=== PATIENT | male | born 1960 | race Caucasian/White ===

== ENCOUNTER 2020-04-28 12:23 | Emergency (ER) | payer BC, SELFPAY ==
[2020-04-28 12:23] VITALS: BP 153/86; PULSE 103; RESP 18; TEMP 36.4; O2SAT 99; BMI 23.0
--- NOTE | 2020-04-28 12:43 | RAD_ITS ---
STUDY: X-RAY CHEST REASON FOR EXAM: Male, 59 years old. RIGHT SIDE PAIN. LEFT SIDE WEAKNESS TECHNIQUE: Single AP portable view of the chest. COMPARISON: None. FINDINGS: The lungs are clear and expanded. There is no demonstrated pleural abnormality. Normal size heart. Normal mediastinum and tali. Normal visualized pulmonary arteries. Normal visualized aortic arch and descending thoracic aorta. Normal visualized thoracic spine. Normal visualized ribs, clavicles, and shoulders. There is no demonstrated abnormality of the visualized soft tissue structures of the upper abdomen. RAD/Chest 1 View (Portable) IMPRESSION: Normal x-ray examination of the chest. Electronically Signed: Alex Tristan MD at 13:34 EST Tel , Service support ,
--- NOTE | 2020-04-28 12:44 | ED.VIS.GEN ---
History of Present Illness Chief Complaint: Weakness Informant: Patient Onset: Days Maximum Severity: Mild Narrative: The patient presents complaining of left upper extremity greater than left lower extremity weakness that began yesterday sometime in the evening. He indicates on Wednesday he was at work he slipped on a railing struck his right chest he has some pain to the posterior right chest but he did not injure his head neck or left side. His left-sided weakness persisted into today where he simply could not effectively use his left upper extremity to grab or do normal activities, he also noticed that he has progressively worsening left lower extremity weakness to where he has trouble walking. He has no headache no confusion he did not hit his head he has no neck pain, he has no symptoms to the right side of his body, no chest pain or abdominal pain, he has no past medical history is on no meds again with a near fall a few days ago he simply slipped and struck the right side of his chest against the railing he did not injure any other part of his body Past Medical History - Allergies and Home Meds Allergies/Adverse Reactions: Allergies Penicillins Allergy (Verified 04/28/20 12:26) Lisha Primary Care Physician: Care Physician,No Primary [Primary Care Provider] - Past Medical History: None Review of Systems General: Denies: Chills, Fever, Sweats Eyes: Denies: Visual changes - bilaterally, Diplopia ENT: Denies: Rhinorrhea, Sore throat Cardiovascular: Reports: Chest pain. Denies: Palpitations Respiratory: Denies: Dyspnea, Cough, Dyspnea on exertion Gastrointestinal: Denies: Abdominal pain, Nausea, Vomiting, Diarrhea, Melena, Hematochezia Genitourinary: Denies: Dysuria, Hematuria, Frequency Musculoskeletal: Denies: Back pain, Extremity Pain Skin: Denies: Rash, Wounds Neurological: Reports: Weakness. Denies: Headache, Numbness Physical Exam Vital Signs/Narrative: Vital Signs Temp Pulse Resp BP Pulse Ox 04/28/20 12:23 97.6 F L 103 H 18 153/86 H 99 General: Well nourished, Well developed, No Acute Distress Head: Normocephalic, Atraumatic Eyes: Perrl, EOMI ENT: Moist mucous membranes, No rhinorrhea Neck: Supple, Nontender Cardiovascular: Regular rate, Regular rhythm, No murmurs, - - Some discomfort to the right posterior chest he has a lidocaine patch to this area there is no crepitance lungs sound clear Respiratory: No distress, CTA bilaterally, Chest nontender Abdomen: Soft, Nontender, Nondistended, Normal bowel sounds Back: Nontender, Normal Inspection Extremities: Nontender, No edema Skin: Normal color, No rash Neurological: Alert, Oriented x3, Cranial nerves II-XII grossly intact, Normal Sensation, Weakness, - - The patient's cranial nerves are intact his speech mental function vision is normal, extract muscles normal, he has obvious weakness 3 out of 5 to left upper extremity similar left lower extremity right side normal, see the note Psychological: Normal affect, Normal Mood Diagnostic/Tx/Re-eval - Medical Decision Making His NIH is cranial nerves are normal the right side is normal, the left side he can raise the left upper extremity off the bed he has obvious weakness he has severe dense weakness to the left hand function he can raise the left leg off the bed but again obvious weakness he can hold the arm and the leg on the left up for the 5 and 10 counts he is given 2 for each of those extremities so his NIH right now is about 4 his mental function is normal oriented alert x4 airway is intact he has no head or neck pain or extremity pain All began yesterday given all the above ED evaluation rapid CTA head neck Patient's EKG shows sinus rhythm rate about 78 no acute injury pattern, The patient CTA head neck per radiology shows wedge-shaped parietal infarct subacute right, the right internal carotid artery seems to have a 50% occlusion with a floating set partially hit floating segment of clot, Spoke with the family spoke with the daughter who is a nurse who resides in [place] patient discussed all the above with them, there are agreed to be transferred to the [facility] for further management of all the above Spoke with the [facility] stroke neurologist and the transfer center neurology asked that the patient be given 325 mg of aspirin no heparin at this time agreed he can be transferred via ground. Critical care time 30 minutes Discussed again all this with the patient and the family who agree Disposition transfer to the [facility] emergency department stroke evaluation Final impression subacute right parietal stroke, right internal carotid intraluminal clot 50% stenosis ED Disposition - Plan for ED Patient: Diagnosis: Acute stroke Referrals: Care Physician,No Primary [Primary Care Provider] -
--- NOTE | 2020-04-28 12:47 | CT_ITS ---
We are attempting to reach an attending provider to discuss findings. An addendum with communication details will be sent when the communication is complete. STUDY: CTA HEAD AND NECK WITH CONTRAST REASON FOR EXAM: Male, 59 years old. Left arm/leg weakness, fell 4 days ago denies hitting head. RADIATION DOSAGE (If Supplied By Facility): CTDIvol = ( 19.79 ) mGy, DLP = ( 624.96 ) mGycm TECHNIQUE: CT angiography was performed with a multi-detector CT scanner. Data acquisition was obtained from the skull base through the vertex following intravenous administration of 100mL Isovue 370. MIP images were reconstructed from the axial data set. Post-processing of the angiographic images was performed, with multiplanar reformation and 3D reconstruction. Individualized dose optimization techniques were used for this CT. COMPARISON: No relevant priors. FINDINGS: The aorta has a normal branching pattern. Right brachiocephalic, right subclavian, right common carotid, left common carotid and left subclavian arteries are patent. Right internal carotid has a partially detached nonocclusive intraluminal thrombus arising from a lipid rich plaque at the common carotid bifurcation, producing low-grade, 50% stenosis. Remainder of the right cervical ICA is patent. Left cervical ICA is patent. Bilateral base of skull carotids, bifurcations, anterior and middle cerebral arteries and proximal branches are patent. There is a wedge-shaped right parietal distal ends territory infarct. There is subjacent vessel is too small and cannot be resolved. Bilateral posterior cerebral arteries, basilar and vertebral arteries are patent. Vertebral arteries are patent in the cervical segments and arise bilaterally from the aorta. IMPRESSION: 1. Partially attached nonocclusive thrombus in the right proximal ICA with 50% reduction in diameter of the vessel. Emergent vascular referral is advised. Electronically Signed: Eligio Christiansen, at 13:58 EST Tel , Service support , STUDY: CT BRAIN WITHOUT CONTRAST REASON FOR EXAM: Male, 59 years old. Left arm and leg weakness, fall 4 days ago RADIATION DOSAGE (If Supplied By Facility): CTDIvol = ( 44.99 ) mGy, DLP = ( 745.49 ) mGycm TECHNIQUE: Transaxial CT imaging of the brain was performed without administration of intravenous contrast material. Individualized dose optimization techniques were used for this CT. COMPARISON: No relevant priors. FINDINGS: There is a moderate extent wedge-shaped right parietal hypodensity with effacement of the sulci and gyri. There is no acute intracranial hemorrhage, extra parenchymal fluid collections, hydrocephalus or herniation. The skull is intact. CT/CTA Head AND Neck W/ Contrast IMPRESSION: 1. Right parietal late acute/early subacute infarct, estimated at 2-10 days old. Electronically Signed: Eligio Christiansen, at 13:54 EST Tel , Service support ,
[2020-04-28 13:11] LABS: Absolute Lymphocyte Count 1.13 X10^3/uL (0.83-4.51); Basophil# 0.03 X10^3/uL; Basophil% 0.2 % (0-1); Differential Indicated SCAN CRITERIA MET; Eosinophil# 0.01 X10^3/uL; Eosinophils% 0.1 % (0-5); Hematocrit 42.8 % (40-54); Hemoglobin 14.6 g/dL (13.0-16.5); Lymphocyte # 1.13 X10^3/ul (4.0); Lymphocyte % 6.9 % (19-41); Mean Corp Hgb Conc 34.1 g/dL (32-36); Mean Corpuscular Hgb 30.8 pg (27.0-32.0); Mean Corpuscular Volume 90.3 fL (80-94); Mean Platelet Vol. 13.5 fl (6.2-12.0); Monocyte% 7.3 % (0-10); NRBC Flagged by Analyzer 0 % (0-5); Neutrophil # 13.97 X10^3/uL (2.7-7.7); Neutrophil % 84.7 % (47-70); POSITIVE COUNT YES; Platelet Count 60 K/mm3 (150-450); RBC Distribution Width CV 12.9 % (11.6-14.6); Red Blood Count 4.74 M/mm3 (4.6-6.2); White Blood Count 16.5 K/mm3 (4.4-11.0)
[2020-04-28 13:21] LABS: Anion Gap 7 (5-15); BUN 18 mg/dL (7-18); BUN/Creat Ratio 17.6 RATIO (10-20); Calcium,Total 8.9 mg/dL (8.5-10.1); Chloride 107 mmol/L (98-107); Creatinine, Serum 1.02 mg/dL (0.70-1.30); EST Glomerular Filtration Rate 79 mL/min (>60); Est Glom Filt Rate - Afr Amer 95 mL/min (>60); Estimated Creatinine Clearance 82.95 ml/min; Glucose 105 mg/dL (74-106); Potassium 3.9 mmol/L (3.5-5.1); Sodium Level 139 mmol/L (136-145)
[2020-04-28 13:35] LABS: Platelet Estimate MKD DEC (ADEQ)
[2020-04-28 13:36] LABS: Platelet Morphology LARGE
--- NOTE | 2020-04-28 13:43 | EKG12_ITS ---
Test Reason : Blood Pressure : / mmHG Vent. Rate : 078 BPM Atrial Rate : 078 BPM P-R Int : 182 ms QRS Dur : 092 ms QT Int : 372 ms P-R-T Axes : 078 079 057 degrees QTc Int : 424 ms Normal sinus rhythm Normal ECG Confirmed by MITCHEL HALL, AD ([id number]), society editor DIAMANTE HOPE ([id number]) on 04/29/2020 10:34:47 AM Referred By: MAXX Confirmed By:AD GRULLON MD
[2020-04-28 14:56] VITALS: BP 146/83; PULSE 82; RESP 17; O2SAT 96
[2020-04-28] MEDS: Aspirin 325 MG Tablet PO (14:59)
[2020-04-28 15:03] VITALS: BP 155/100; PULSE 78; RESP 16; O2SAT 95
[2020-04-28 15:11] LABS: International Normalized Ratio 1.2; Prothrombin Time (Protime)PT. 14.7 SECONDS (11.7-14.9)
[2020-04-28 15:40] VITALS: BP 161/85; PULSE 77; RESP 16; O2SAT 96
== END 2020-04-28 15:42 | disposition short-term general hospital (02) ==
PROVIDERS: Emergency Provider Emergency Medicine
DX: I63.231 Cerebral infarction due to unspecified occlusion or stenosis of right carotid arteries (principal); G81.94 Hemiplegia, unspecified affecting left nondominant side
CPT/HCPCS: 70496; 70498; 71045; 80048; 85025; 85610; 93005; 96360; 96361; 99285; J7040; Q9967

== ENCOUNTER → 2020-05-29 11:31 | Outpatient (CLI) | payer BC, SELFPAY ==
[2020-05-29 15:46] LABS: AST(SGOT) 17 U/L (15-37); Alanine Aminotransfer ALT/SGPT 32 U/L (16-61); Alkaline Phosphatase 125 U/L (45-117); Bilirubin, Direct 0.09 mg/dL (0.00-0.30); Cholesterol 130 mg/dL (200); Globulin 3.7 g/dL (2.2-4.2); High Density Lipoprotein 62 mg/dL; Protein, Total 7.7 g/dL (6.4-8.2); Triglycerides 73 mg/dL; Very Low Density Lipoprotein 15 mg/dL (5-40)
== END ==
PROVIDERS: PCP Family Medicine; Visit Provider Family Medicine
DX: E78.5 Hyperlipidemia, unspecified (principal)
CPT/HCPCS: 36415; 80061; 80076

== ENCOUNTER → 2020-08-08 07:34 | Outpatient (CLI) | payer BC, SELFPAY ==
--- NOTE | 2020-08-08 07:39 | CT_ITS ---
STUDY: CTA HEAD AND NECK WITH CONTRAST REASON FOR EXAM: Male, 60 years old. CEREBRAL INFARCTION/UNSPECIFIED RADIATION DOSAGE (If Supplied By Facility): CTDIvol = ( 29.36 ) mGy, DLP = ( 1524.74 ) mGycm TECHNIQUE: CT angiography was performed with a multi-detector CT scanner. Data acquisition was obtained from the skull base through the vertex following intravenous administration of IV 100mL Isovue-370. MIP images were reconstructed from the axial data set. Post-processing of the angiographic images was performed, with multiplanar reformation and 3D reconstruction. Individualized dose optimization techniques were used for this CT. COMPARISON: Comparison is made with prior examination dated 04/28/2020. FINDINGS: Normal bilateral petrous carotid arteries. There is calcified plaque formation of the right cavernous carotid artery, without a cross-sectional luminal stenosis. There is calcified plaque formation of the left cavernous carotid artery, without a cross-sectional luminal stenosis. Normal right A1 segments of the anterior cerebral artery. Normal left A1 segments of the anterior cerebral artery. Normal intact anterior communicating artery (ACOM). Normal bilateral A2 segments of the anterior cerebral arteries. There is irregularity of the right M1 and M2 branches with minimal luminal narrowing, suggesting atherosclerotic plaque formation, without an occlusion. There are decreased arterial branches in the distribution of the sylvian fissure on the right side. Normal left M1 and M2 segments of the middle cerebral arteries, with a normal M1 bifurcation. Normal right posterior communicating artery (PCOM). Normal left posterior communicating artery (PCOM). Normal bilateral vertebral arteries. Normal basilar artery with a normal basilar bifurcation. The visualized bilateral superior cerebellar (SCA) arteries are normal. Normal bilateral P1, P2 and visualized P3 segments of the posterior cerebral arteries. There is no demonstrated aneurysm of the [place]. There is evidence of encephalomalacia in the right temporal parietal occipital lobes. AORTIC ARCH: There is atherosclerotic calcific plaque formation of the aortic arch and great vessels arising from the aortic arch, without a hemodynamically significant stenosis. There is a normal origin of the brachiocephalic, left common carotid, and left subclavian arteries. RIGHT CAROTID ARTERIES: Normal right common carotid artery (CCA). Normal right common carotid bulb. Normal origin of the right internal carotid (ICA) artery without a hemodynamically significant stenosis. Normal visualized cervical portion of the right internal carotid artery. The previously seen thrombus in the distal portion of the right common carotid artery is not seen at this time. Normal origin of the right external carotid artery (ECA). LEFT CAROTID ARTERIES: Normal left common carotid artery (CCA). Normal left common carotid bulb. Normal origin of the left internal carotid (ICA) artery without a hemodynamically significant stenosis. Normal visualized cervical portion of the left internal carotid artery. Normal origin of the left external carotid artery (ECA). VERTEBRAL ARTERIES: There is enhancement within the bilateral vertebral arteries with a small left vertebral artery, and a dominant right vertebral artery. CT/CTA Head AND Neck W/ Contrast IMPRESSION: Irregularities of the right M1 and M2 branches of the right middle cerebral artery suggestive of atherosclerotic changes with decreased arterial branches within the right sylvian fissure. Electronically Signed: Trace Bishop MD at 9:35 EDT , Service support ,
[2020-08-08 07:51] LABS: CREATININE FINGERSTICK 1.3 mg/dL (0.70-1.30); EGFR FINGERSTICK > 60.0000 mL/min (>60)
== END ==
PROVIDERS: PCP Family Medicine; Visit Provider Psychiatry & Neurology Neurology
DX: I63.9 Cerebral infarction, unspecified (principal)
CPT/HCPCS: 70496; 70498; Q9967; A4216

== ENCOUNTER 2020-10-22 16:30 | Outpatient (RCR) | payer BC, SELFPAY ==
--- NOTE | 2020-07-16 16:56 | HP.PTEVAL ---
Patient's Visit Information NILESH JOHNSON is a 60 year old M referred to Physical Therapy by Dr. Vinnie Nash DO with a diagnosis of C VA. Date of Evaluation: 07/16/20 Physical Therapist: Serjio Tran DPT, OCS, CSCS - Visit Plan Frequency: 3x /Week Duration: 4-6 Weeks Plan: 3x/week for 3-6 weeks for. 1. L LE strength to HEP. 2. L LE coordination and posterior stretching. 3. functional strengtha nd gait weaning AD as safety allows and steps, upper level gait. Balance L LE. Pt to have OT for fine motor and UE. - Subjective 04/28/20 stroke April 28. Had 4 visits of PT over at [facility]. Had home therapy originally. Spent 3 days [facility] and [facility]. Had a clot in carotid and L side is weak and poor motor control. Mostly the arm is effected. L ankle is a little stiff. Walking is more poor balance. Uses cane to get around and sometimes a walker. Did not need prior to stroke. Improvement since had stroke but slow. Lives with and great tanika. 37 years. Has two floors but lives on bottom floor with two steps out to yard which he does not do alone. One step off deck whcih he can do but goes down backwards. Has a rail. Dresses self, bathroom I, shower I with step in shower and sits ion chair climbing in himself. Needs some help pulling pants up with L UE. Is R handed. Sleep is good and not in any pain. 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 Can get down on hands and knees and get back up, does dishes and runs vaccuum. Feeds dog at night but all things are slow. Took trash out yesterday. 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 No falls. Enjoys hunting golfing when healthy. Enjoys dirt track races watching. - Objective L diminished motor controla dn slowness in gait pattern, using cane in R and less movement to L LE joints, but mod I with cane adn without cane albeit slow adn less steady without cane. Trasnfers without UE I. Steps preferring to use R up and L down and needing two rails. HS adn gastroc max tight on L and mod on R. AROM L hip 5 ext and 10 abd actively but has better passive ROM. weak and poor motor control throughout L LE. strength in hips 4- and knee flexion ext 3+ L and ankle ev and DF 3 on L and 3+ PF adn inv. R LE is 4/5 throughout. reflexes 2/3 R patella and achilles and 3/3 R. Sensation is diminished to gross lgiht touch in L LE vs R moderately. Coordination to reciprocal toe tapping and heel tap is poor on L. UE AROM WFL but weaker throughout on L. - Balance Scores Functional Gait Assessment Score: 20 % Disability: 33.3400 - Goals Goal 1:: patient walk without gait deficits comunity based distance Goal Time Frame: 4-6 Weeks Goal 2:: Steps reciprocally without need for rail Goal Time Frame: 4-6 Weeks Goal 3:: I appropriate HEP for cotninued improvement of L LE motor controla dn strength Goal Time Frame: 4-6 Weeks Goal 4:: LEFS 55/80 Goal Time Frame: 4-6 Weeks Goal 5:: Pt report 90% improvement in overall condition Goal Time Frame: 4-6 Weeks - Rehabilitation Potential Physical Therapy Diagnosis: CVA with L weakness effecting mobility. Rehabilitation Potential: Fair - Anticipated Interventions Patient/Client Instruction: Educate patient on: Condition, Plan of Care For the Purpose of:: To improve muscle performance and motor function, To increase tolerance to activity/condition/position, To improve ability of physical actions for home/community/work/leisure, To improve gait and locomotor functions Therapeutic Exercise to Include: Strength training, Postural training, Flexibilty training, Gait and locomotor training For the Purpose of:: To decrease pain, To improve muscle performance and motor function, To improve ability to perform ADL's, To increase tolerance to activity/condition/position, To decrease level of supervision to perform tasks, To improve gait and locomotor functions Thank you for the opportunity to evaluate your patient. For Medicare and Medicare HMO plans, please review the plan of care and approve it. It will need to be FAXED BACK to us at [phone] for Medicare purposes. For Medicare only, by signing this I certify the plan of care. Please let me know if there are questions or concerns regarding this plan of care. Physician Signature: Date:
--- NOTE | 2020-07-18 11:38 | HP.OTEVAL_ITS ---
Patient's Visit Information NILESH JOHNSON is a 60 year old M, referred to Occupational Therapy by Dr. Vinnie Nash DO, with a diagnosis of CVA left side weakness. Date of Evaluation: 07/18/20 Occupational Therapist: Fiona Santos, SAM/Joo, CHT - Subjective This 60 year old male was seen for OT eval with dx of CVA. pts states April 28, 2020 was his stroke. pt had 4 visits of PT over at [facility]. Had home therapy originally. Spent 3 days [facility] and then 6 days at [facility]. Had a clot in carotid and L side is weak and poor motor control. Mostly the arm is effected. Using cane to get around and sometimes a walker. Did not need prior to stroke. Improvement since had stroke but slow. Lives with and great tanika. 37 years. Has two floors but lives on bottom floor with two steps out to yard which he does not do alone. One step off deck whh he can do by going down backwards. Has a rail. Dresses self, bathroom I, shower at YANET with use of shower chiar step in shower. tsf into shower herself. Needs some help pulling pants up with L UE. Is R handed. Sleep is good and not in any pain. 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 Can get down on hands and knees and get back up, does dishes and runs vaccuum. Feeds dog at night but all things are slow. Took trash out yesterday. 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 No falls. Enjoys hunting golfing when healthy. Enjoys dirt track races watching. - ADLs Dressing: Pants, Socks, Shoes Fasteners: Tie shoes, Buttons, Zippers, Snaps Eating: Use silverware, Cut food Comments: sits on shower chiar holds shower head Toileting: Manage clothing Kitchen: Peel fruits & vegetables, Open bottle caps, Ziplock bags, Pour from pitcher, Take dish out of oven, Load/unload seat cover cutter Yard: Mow lawn, [place], [place], Use shovel - ROM ROM Comments: pt demo ROM WNL slow with completion of ROM but has it! - Strength Shoulder: right 5/5 left 4-/5 Elbow: right 5/5 left 4-/5 Forearm: right 5/5 left 4-/5 Wrist: right 5/5 left 4-/5 Sustainability Engineer: right 85# left 30# Lateral Pinch: right 20# left 12# Tripod Pinch: right 16# left 6# - Sensation Sensation Comments: denies changes - Visual/Perceptual Skills Visual Field Cut: Yes - bottom left right eye bottom left left eye Left Neglect: Yes - Cognitive Skills Follows Directions: Yes - needs correction and repeat Oriented to (Check all that apply): Place - [place] Peg Right: 26.14 sec Left: 2:00 min given unable to perform Comments: shoulder compensation - In-Hand Manipulation Finger to Palm Translation: Normal - Right, Unable - Left Palm to Finger Translation: Normal - Right, Unable - Left Shift: Normal - Right, Unable - Left Rotation: Normal - Right, Unable - Left - Goals Goal:: pt will demo left UE MMT 4+/5 grossly throughout to increase pts ind with ADLs and IADls by d/c. pt will demo a increase in left regulatory affairs assistant strength to 70# or greater to increase pts ind. with ADLs and IADls by d/c. pt will demo a increase in left lateral and tripod pinch to by 6# to increase pts ind. with ADLs and IADls by d/c Goal:: pt will demo with increase in left UE fluid movement patterns of shoulder/elbow/wrist and digits - demo a decrease in compensitory jitendra. by d/c Goal:: pt will demo the ability to manipulate fasteners ind by d/c. pt will demo ability to berry picker machine operator small, med, large objects to perform ADls and IADLs by d/d Goal:: pt and will report YANET with bathing/dressing/ cutting food by d/c Goal:: pt will demo the ability to position self in N with no turning to right demo a decrease in left neglect by d/c to increase field of view to increase safty and environmental awarness. - Rehabilitation General Assessment: pt demo with left UE weakness, abnormal muscle movement , compensitory jitendra. to reach - poor grasp and pinch grasp, visual deficits, balance . this is limiting pts ind. with ADls and IADls. pt would benefit from skilled OT services 3x week for 8 weeks to increase pts movment patterns, strength and return pt to PLOF. pt and pts agree to POC. Rehabilitation Potential: Good - Anticipated Interventions A/AAROM/PROM, Strengthening, Fine Motor Coord/Robby, Neuro Reeducation, Education re assistive Equipment - Visit Plan Frequency: 2-3x /Week Duration: 3 Months TEXT: Thank you for the opportunity to evaluate your patient. For Medicare and Medicare HMO plans, please review the plan of care and approve it. It will need to be FAXED BACK to us at [phone] for Medicare purposes. Please let me know if there are questions or concerns regarding this plan of care. Physician Signature: Date:
--- NOTE | 2020-08-23 13:03 | HP.PTREVAL_ITS ---
Dr. Vinnie Nash, DO, It has been my pleasure to treat NILESH JOHNSON over the last 15 visits for CVA. Please see the progress note below for an update on the physical therapy plan of care! Subjective: I can get around easier. feeling stronger adn faster. No falls Using cane at t imes away form homes. No AD needed at home except just after shower. Only been up steps a few times with railing required. Sleep is good. Activities a jessica are not bad, not confident in his arm is holding him back. Did some push mowng well. Haven't tried golfing yet. 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 Balance is till not overly confident. To family doctor in November. has heart monitor on him now adn will have virtual visit with neuro on October 01. Objective/Function: Walsk with L UE overflow neuro into elevated scap adn shoulder flexion 30 degrees especially when challenged. Safe adn I on firm surface today. Trasnfers out of chair without UE. steps require railing and mod I reciprocally up and down with some weakness L. SLS r 8+ sec adn L 1 seconds and dangerous. Strength DF L 4- adn R 4. hip abd and ext 3+ L and 4- R. knee flexion and extension 4 B. Overall good improvements and still apprpriate to cotniue fo rbalance and progression to I gym program. Plan Plan: 2-3x/week for 4 weeks for. 1. insturct adn progress to I with gym program. 2. Wrok on SLS staitc and dynamic balance L. Goals still approrpriate with fair prognosis Goals Goal 1:: patient walk without gait deficits comunity based distance Goal Time Frame: 4-6 Weeks Goal Progress: limp, but I. Goal 2:: Steps reciprocally without need for rail Goal Time Frame: 4-6 Weeks Goal Progress: needs rail Goal 3:: I appropriate HEP for cotninued improvement of L LE motor controla dn strength Goal Time Frame: 4-6 Weeks Goal Progress: Goal Met Goal 4:: LEFS 55/80 Goal Time Frame: 4-6 Weeks Goal Progress: Progressing Goal 5:: Pt report 90% improvement in overall condition Goal Time Frame: 4-6 Weeks Goal Progress: Progressing Goal 6:: SLS L 5+ seconds to show improved motor control L Goal Time Frame: 4-6 Weeks Goal Progress: NEW GOAL Anticipated Interventions Patient/Client Instruction: Educate patient on: Condition, Plan of Care For the Purpose of:: To improve muscle performance and motor function, To increase tolerance to activity/condition/position, To improve ability of physical actions for home/community/work/leisure, To improve gait and locomotor functions Therapeutic Exercise to Include: Strength training, Postural training, Flexibilty training, Gait and locomotor training For the Purpose of:: To decrease pain, To improve muscle performance and motor function, To improve ability to perform ADL's, To increase tolerance to activity /condition/position, To decrease level of supervision to perform tasks, To improve gait and locomotor functions Please do not hesitate to contact me at [phone] by phone or if you have questions or concerns regarding this new plan of care! Sincerely, Serjio Tran, DPT, OCS, CSCS
--- NOTE | 2020-08-27 10:16 | OTREVAL_ITS ---
Dr. Vinnie Nash, DO, It has been my pleasure to treat NILESH JOHNSON over the last 15 visits for CVA left side weakness. Please see the progress note below for an update on the occupational therapy plan of care! Subjective: pt states due to limited control of his left arm he has difficulty with daily tasks- states he is doing better with a fork. pt still has limitations with control of left UE with reaching for items/ pt wanting to know when he can drive- therapist advised to sign up for driving evaluation at [facility] or [facility]. pts voiced frustration with not driving does not understand why i can get DUI and drive in 30 days why cant i drive now pt not receptive to therapist explanation of the difference between CVA and into xication- therapist expressed to to schedule apt with driving program. Objective/Function: left muck hauler strength 52# initial was 30#. left lateral pinch 18# increase from 12#. left tripod pinch 16# increase from 6#. left shoulder flex 4/5. pt demo the ability to poultry picking machine tender 10 coins with left hand at slower pace and did drop 1 with poultry picking machine tender (pt did not notice) followed with palm to finger translation dropping 1 coin without notice. pt still has limitations with gross motor control of left UE and grasp- this maybe due to left lower visual peripheral loss. As pt has gained strength will focus on gross motor control with reaching for items and work with visual scan of objects- pt will cont with UE HEP Plan Frequency: 2-3x /Week Duration: 4 Weeks Plan: cont with left UE gross motor cotrol Goals - Goals Patient Goals: Regain Mobility, Regain Strength, Return to Work, Improve Fine Motor Skills, Use Hand/Wrist/Arm Normally Again, Be More Independent in ADLS Goal:: pt will demo left UE MMT 4+/5 grossly throughout to increase pts ind with ADLs and IADls by d/c. pt will demo a increase in left muck hauler strength to 70# or greater to increase pts ind. with ADLs and IADls by d/c. pt will demo a increase in left lateral and tripod pinch to by 6# to increase pts ind. with ADLs and IADls by d/c Goal:: pt will demo with increase in left UE fluid movement patterns of shoulder/elbow/wrist and digits - demo a decrease in compensitory jitendra. by d/c Goal:: pt will demo the ability to manipulate fasteners ind by d/c. pt will demo ability to poultry picking machine tender small, med, large objects to perform ADls and IADLs by d/d Goal:: pt and will report YANET with bathing/dressing/ cutting food by d/c Goal:: pt will demo the ability to position self in N with no turning to right demo a decrease in left neglect by d/c to increase field of view to increase safty and environmental awarness. Anticipated Interventions Anticipated Interventions: A/AAROM/PROM, Strengthening, Fine Motor Coord/Robby, Neuro Reeducation, Education re assistive Equipment Please do not hesitate to contact me at [phone] by phone or if you have questions or concerns regarding this new plan of care! Sincerely, Fiona Santos, OTR/L, CHT
--- NOTE | 2020-09-20 12:39 | HP.PTREVAL_ITS ---
Dr. Vinnie Nash, DO, It has been my pleasure to treat NILESH JOHNSON over the last 23 visits for CVA. Please see the progress note below for an update on the physical therapy plan of care! Subjective: Getting better. I can do more things. Can walk further adn safer. No falls lately, not needing cane. Doing outdoor work with push and riding mwer adn carrying buckets of wter, weed whacker is still challenging. Shovelling is OK. L arm body recall instructor is challenging on weed whacker. 75% better, 25% is fatigued some days. Needs to be stronger still. Steps, push ups, Lifts small weights. Feels like he can do workout in gym on his own. Objective/Function: FGA same as last session at 25, SLS 5 seconds L and 10 R. Steps reciprocally but needs rail L. Awkward motor control on L LE, tends to hold L UE out to side when walking until cued. Overall doing well with improvements, feels like he can ex himself but wants PT to ensure progress which is appropriate with fair prognosis. Plan Plan: 1x/week therapy, pt to bring ex sheet given to him christie bai with gym exericses to teach progressions and ensure technique , gradually add functional ex to program as safety allows. Will work out 2xweek himself in gyma s member and fitness membership form given today. Goals Goal 1:: patient walk without gait deficits comunity based distance Goal Time Frame: 4-6 Weeks Goal Progress: limp, but I. Goal 2:: Steps reciprocally without need for rail Goal Time Frame: 4-6 Weeks Goal Progress: needs rail Goal 3:: I appropriate HEP for cotninued improvement of L LE motor controla dn strength Goal Time Frame: 4-6 Weeks Goal Progress: Goal Met Goal 4:: LEFS 55/80 Goal Time Frame: 4-6 Weeks Goal Progress: stagnant. Goal 5:: Pt report 90% improvement in overall condition Goal Time Frame: 4-6 Weeks Goal Progress: 75% Goal 6:: SLS L 5+ seconds to show improved motor control L Goal Time Frame: 4-6 Weeks Goal Progress: Goal Met Anticipated Interventions Patient/Client Instruction: Educate patient on: Condition, Plan of Care For the Purpose of:: To improve muscle performance and motor function, To increase tolerance to activity/condition/position, To improve ability of physical actions for home/community/work/leisure, To improve gait and locomotor functions Therapeutic Exercise to Include: Strength training, Postural training, Flexibil ty training, Gait and locomotor training For the Purpose of:: To decrease pain, To improve muscle performance and motor function, To improve ability to perform ADL's, To increase tolerance to activity/condition/position, To decrease level of supervision to perform tasks, To improve gait and locomotor functions Please do not hesitate to contact me at [phone] by phone or if you have questions or concerns regarding this new plan of care! Sincerely, Serjio Tran, DPT, OCS, CSCS
--- NOTE | 2020-09-27 11:52 | HP.OTDCSUM_ITS ---
It has been my pleasure to treat NILESH JOHNSON under orders from Dr. Vinnie Nash, DO, for the diagnosis of CVA left side weakness for a total of 22 visit(s). Please see the following information for a summary of their discharge status. % Improvement: 75 Objective/Function: pt demo full ROM and a increase in Left Energy Analyst 60#. pt has made good gains with his strength and FMS. he continues to struggle with vision issues from his stroke. pt has met goals and will transition to health and wellness and is d/c from OT. Patient Goals: Regain Mobility, Regain Strength, Return to Work, Improve Fine Motor Skills, Use Hand/Wrist/Arm Normally Again, Be More Independent in ADLS Goal:: pt will demo left UE MMT 4+/5 grossly throughout to increase pts ind with ADLs and IADls by d/c met. pt will demo a increase in left land title examiner strength to 70# or greater to increase pts ind. with ADLs and IADls by d/c progressing. pt will demo a increase in left lateral and tripod pinch to by 6# to increase pts ind. with ADLs and IADls by d/c met Goal:: pt will demo with increase in left UE fluid movement patterns of shoulder/elbow/wrist and digits - demo a decrease in compensitory jitendra. by d/c Goal:: pt will demo the ability to manipulate fasteners ind by d/c goal met. 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 Plan: last appt, transition to Health and Wellness Discharge Comments: pt has made good gains and at this time transitioned to health and wellness program to cont. with UB strengthening. If there are questions or concerns regarding this patient's occupational therapy, please fell free to call me at [phone]. Thank you for the referral of this patient. Sincerely, Fiona Santos, OTR/L, CHT
--- NOTE | 2020-10-22 17:43 | HP.PTDCSUM ---
It has been my pleasure to treat NILESH JOHNSON referred by Dr. Vinnie Nash DO, with the diagnosis of CVA for a total of 28 visit(s). Discharge Date: 10/22/20 Please see the following information for a summary of their discharge status. Subjective: Doing OK with workout.No pain. No ocncerns about continuing on own. activities at home are pretty normal. Needs continue work in arm to even think about back to work/driving. % Improvement: 80 Objective/Function: AROM ankles WFL today with some L weakness DF adn tonal abnormalities causing gait deviation on L but I with gait with good speed. Steps are reciprocal without rail ascending and slight rail needed descanding. UE tone of bicpes and shoulder flexion noticeabe with concentration but corrects with VC. Transitions I without UE. Overall doing very well with mobility and can continue on his own at gym. Goal 1:: patient walk without gait deficits comunity based distance Goal Progress: I slow with neuro deficit Goal 2:: Steps reciprocally without need for rail Goal Progress: needs rail tod descend Goal 3:: I appropriate HEP for cotninued improvement of L LE motor controla dn strength Goal Progress: Goal Met, and in gym Goal 4:: LEFS 55/80 Goal Progress: Not Progressing Goal 5:: Pt report 90% improvement in overall condition Goal Progress: 80% Goal 6:: SLS L 5+ seconds to show improved motor control L Goal Progress: Goal Met Plan: d/c Discharge Comments: Pt to cotninue via gy program and f/u with doctor in 4 weeks. call in meantime if problems. If there are questions or concerns regarding this patient's physical therapy, please feel free to call me at [phone]. Thank you for the referral of this patient. Sincerely, Serjio Tran, DPT, OCS, CSCS
== END 2020-10-22 19:00 | disposition home or self-care (01) ==
LOC: PT 16:30
PROVIDERS: PCP Family Medicine; Referring Provider Family Medicine; Visit Provider Family Medicine
DX: I69.354 Hemiplegia and hemiparesis following cerebral infarction affecting left non-dominant side (principal)
CPT/HCPCS: 97110; 97112; 97116; 97162; 97164; 97166; 97530

== ENCOUNTER → 2020-11-22 07:43 | Outpatient (CLI) | payer BC, SELFPAY ==
[2020-11-22 10:21] LABS: Absolute Lymphocyte Count 1.73 X10^3/uL (0.83-4.51); Absolute Neutrophil Count 4.7 X10^3/uL (2.0-7.7); Basophil# 0.06 X10^3/uL; Basophil% 0.8 % (0-1); Eosinophil# 0.18 X10^3/uL; Eosinophils% 2.5 % (0-5); Hematocrit 47.4 % (40-54); Hemoglobin 15.5 g/dL (13.0-16.5); Lymphocyte # 1.73 X10^3/ul (0.83-4.51); Lymphocyte % 24.1 % (19-41); Mean Corp Hgb Conc 32.7 g/dL (32-36); Mean Corpuscular Volume 91.7 fL (80-94); Mean Platelet Vol. 13.2 fl (6.2-12.0); Monocyte# 0.47 X10^3/uL; Monocyte% 6.5 % (0-10); NRBC Flagged by Analyzer 0 % (0-5); Neutrophil # 4.73 X10^3/uL (2.7-7.7); Platelet Count 172 K/mm3 (150-450); RBC Distribution Width CV 13.7 % (11.6-14.6); RBC Distribution Width SD 46.9 fl (35.1-43.9); Red Blood Count 5.17 M/mm3 (4.6-6.2); White Blood Count 7.2 K/mm3 (4.4-11.0)
[2020-11-22 10:35] LABS: ALB/GLOB Ratio 1.5 RATIO (0.9-2.4); AST(SGOT) 15 U/L (15-37); Alanine Aminotransfer ALT/SGPT 27 U/L (16-61); Albumin, Serum 4.1 g/dL (3.2-5.0); Alkaline Phosphatase 80 U/L (45-117); Anion Gap 5 (5-15); BUN 14 mg/dL (7-18); BUN/Creat Ratio 16.7 RATIO (10-20); Chloride 106 mmol/L (98-107); Cholesterol 131 mg/dL (200); Creatinine, Serum 0.84 mg/dL (0.70-1.30); EST Glomerular Filtration Rate 98 mL/min (>60); Est Glom Filt Rate - Afr Amer 119 mL/min (>60); Globulin 2.8 g/dL (2.2-4.2); Glucose 91 mg/dL (74-106); High Density Lipoprotein 76 mg/dL; Potassium 3.8 mmol/L (3.5-5.1); Protein, Total 6.9 g/dL (6.4-8.2); Sodium Level 140 mmol/L (136-145); Triglycerides 49 mg/dL; Very Low Density Lipoprotein 10 mg/dL (5-40)
== END ==
PROVIDERS: PCP Family Medicine; Referring Provider Family Medicine; Visit Provider Family Medicine
DX: Z00.00 Encounter for general adult medical examination without abnormal findings (principal)
CPT/HCPCS: 36415; 80053; 80061; 85025

== ENCOUNTER 2021-01-20 08:04 | Day surgery (SDC) | payer BC, SELFPAY ==
--- NOTE | 2021-01-20 08:23 | H&P.OPEN ---
HPI - General HPI Narrative NILESH JOHNSON, is a 60 M who presents for screening colonoscopy. Patient's never had a previous colonoscopy. Patient denies a family history of colon cancer. Patient denies a chronic abdominal pain/nausea/vomiting/reflux. Patient's bowel moods daily denies any blood. Patient does have past medical history of CVA so he continued his baby aspirin. [facility] Medical History (Updated 01/16/21 @ 12:20 by Darshana Eric) Alcohol use Ambulates with cane Chronic cough CVA (cerebral vascular accident) Depression High cholesterol Shortness of breath on exertion Smoker Stroke/cerebrovascular accident Wears dentures Wears glasses Home Medications aspirin 81 mg tablet,delayed release 81 mg PO DAILY 12/13/20 [History Last Taken Unknown] atorvastatin 40 mg tablet 40 mg PO DAILY 12/13/20 [History Last Taken Unknown] Allergy/AdvReac Type Severity Reaction Status Date / Time Penicillins Allergy Hives Verified 01/16/21 12:11 Family History (Updated 12/13/20 @ 14:08 by Sultana Barakat) Sister Hypercholesterolemia Father CVA (cerebral vascular accident) Hypercholesterolemia Surgical History (Updated 12/13/20 @ 14:07 by Sultana Barakat) No history of previous surgery Social History (Updated 12/13/20 @ 14:08 by Sultana Barakat) Smoking Status: Current every day smoker tobacco type: cigarettes alcohol intake: never substance use type: does not use Past Medical/Surgical History Planned Operation Planned Operative Procedure/s: COLON Previous Hospitalizations/Surgeries HX Hospitalizations: Yes ([facility] 04/28/20 [facility]) Any Problems With Anesthesia: No You/Your Family Experience Fever (Hyperthermia) With Anes: No Cholinesterase deficiency: No Cardiovascular Hx Hypertension: No Respiratory Hx Asthma: Yes Hx Sleep Apnea: No Hx Respiratory Tract Infection/Cold (presently): No Do You Snore Loudly (louder than talking or can be heard): No Do You Often Feel Tired/ Fatigued/ Sleepy Dring Daytime?: No Has Anyone Observed You Stop Breathing During Sleep?: No Result (for STOP score): Negative Smoking Status: Current every day smoker Gastrointestinal Difficulty Chewing/Swallowing: No Neurological Does patient have nerve stimulator: No Allergies Penicillins Allergy (Verified 01/16/21 12:11) Hives Discharge Is Pt Admitted From a [facility], or a [facility]: No After D/C, Where Do you Plan to Go: Return Home Physical Exam Const alert, oriented x3 and no apparent distress HEENT normocephalic and head/scalp atraumatic Resp normal respiratory effort Cardio regular rate GI soft to palpation and non-tender; Negative for non-distended Palpation: Negative for guarding Extremity no clubbing, cyanosis or edema Neuro CN's II-XII intact bilaterally Psych mental status grossly normal Assessment & Plan Assessment/Plan (1) Screening for colon cancer: Procedure Criteria Type of Procedure Procedure Type: Elective Elective Risks - COVID COVID Risk Discussion: The surgeon/proceduralist and patient have discussed in detail the risk of exposure to and/or potential harm posed by the COVID-19 virus with having a surgery/procedure at this time versus the risk of delaying the surgery/procedure. It is not possible to know either the risk of delaying the surgery or procedure or chance of getting an infection with perfect accuracy, but a joint decision was made between the patient and the surgeon/proceduralist to proceed at this time with the scheduled surgery/procedure as indicated on the consent form. Surgery Risks - Colonoscopy Risks Include but are not Limited To: Risks include but are not limited to: Bleeding, perforation requiring further surgery, inability to complete colonoscopy requiring barium enema.
[2021-01-20 08:39] VITALS: BP 127/84; PULSE 87; RESP 16; TEMP 36.8; O2SAT 98; BMI 19.3
[2021-01-20] MEDS: Lactated Ringers 1,000 ML 100 ML IV (08:53)
--- NOTE | 2021-01-20 09:30 | COLBX_PTH ---
PATIENT: NILESH JOHNSON LOC: EN U#:[id number] AGE/SX: 60/M ROOM: RE01/20/[address]: Dr. Leigha Mcdermott MD : 1960 BED: DIS: 01/20/2021 SPEC #: [id number] RECD: 01/20/21 09:50 STATUS: [place]CCO [place] #: [id number] DMITRIY: 01/20/21 09:[address]: Leigha Mcdermott DEPT: SURGICAL PATHOLOGY RECD BY: Lori Jose ENTERED: 01/20/21 11:47 SP TYPE: COLON BX OTHR DR: Dr. Vinnie Nash, DO Tissues: Rectum, NOS Procedures: Surgery Specimen Level IV HEADER OPERATION: Colonoscopy (MAC) PRE-OP DIAGNOSIS: Screening for colon cancer TISSUE SUBMITTED: Rectal polyps x2 MICROSCOPIC DIAGNOSIS Rectal polyps x2, biopsy: Fragments of hyperplastic polyp. WEI:adalberto 01/21/2021 MICROSCOPIC DESCRIPTION Slides are reviewed. GROSS DESCRIPTION Received in fixative is one container labeled with the patient's name and designated rectal polyps. The specimen consists of multiple irregular fragments of light donahue soft tissue that in aggregate measure 1 x 0.3 x 0.1 cm. The specimen is totally submitted in one cassette. / AM:adalberto 01/20/21 TC:1 CPT: 64505
[2021-01-20 09:43] VITALS: BP 127/84; BP 92/70; PULSE 61; RESP 16; TEMP 36.2; O2SAT 96
--- NOTE | 2021-01-20 09:44 | OP.COLON_ITS ---
Patient Name: Norberto Sosa Procedure Date: 01/20/2021 9:09 AM Date of : 1960 Age: 60 Procedure: Colonoscopy Indications: Screening for colorectal malignant neoplasm Providers: Leigha Mcdermott MD Medicines: Monitored Anesthesia Care Patient Profile: This is a 60 year old male. Last Colonoscopy: none. The patient's first colonoscopy is today. Complications: No immediate complications. Procedure: Pre-Anesthesia Assessment: - Prior to the procedure, a History and Physical was performed, and patient medications and allergies were reviewed. The patient's tolerance of previous anesthesia was also reviewed. The risks and benefits of the procedure and the sedation options and risks were discussed with the patient. All questions were answered, and informed consent was obtained. Prior Anticoagulants: The patient has taken aspirin, last dose was 1 day prior to procedure. ASA Grade Assessment: Per anesthesia. After reviewing the risks and benefits, the patient was deemed in satisfactory condition to undergo the procedure. After I obtained informed consent, the scope was passed under direct vision. Throughout the procedure, the patient's blood pressure, pulse, and oxygen saturations were monitored continuously. The colonoscope was introduced through the anus and advanced to the cecum, identified by the appendiceal orifice, ileocecal valve and palpation. The colonoscopy was performed without difficulty. The patient tolerated the procedure well. The quality of the bowel preparation was good. Scope In: 9:15:50 AM Scope Withdrawal Time 0 hours 13 minutes 52 seconds Scope Out: 9:39:42 AM Total Procedure Duration Time 0 hours 23 minutes 52 seconds Findings: The perianal and digital rectal examinations were normal. A less than 5 mm polyp was found in the rectum. The polyp was sessile. The polyp was removed with a cold biopsy forceps. Resection and retrieval were complete. A less than 5 mm polyp was found in the rectum. The polyp was semi-pedunculated. The polyp was removed with a hot snare. Resection and retrieval were complete. The exam was otherwise without abnormality on direct and retroflexion views. Impression: - One less than 5 mm polyp in the rectum, removed with a cold biopsy forceps. Resected and retrieved. - One less than 5 mm polyp in the rectum, removed with a hot snare. Resected and retrieved. - The examination was otherwise normal on direct and retroflexion views. Recommendation: - Discharge patient to home. - Resume previous diet. - Continue present medications. - Await pathology results. - Repeat colonoscopy in 5 years for surveillance based on pathology results. Procedure Code(s): --- Professional --- 50452, Colonoscopy, flexible; with removal of tumor(s), polyp(s), or other lesion(s) by snare technique 75780, 59, Colonoscopy, flexible; with biopsy, single or multiple Diagnosis Code(s): --- Professional --- Z12.11, Encounter for screening for malignant neoplasm of colon K62.1, Rectal polyp CPT copyright 2017 [employer]. All rights reserved. The codes documented in this report are preliminary and upon plant safety leader review may be revised to meet current compliance requirements. MD Leigha Puentes MD 01/20/2021 9:44:15 AM This report has been signed electronically. Number of Addenda: 0 Note Initiated On: 01/20/2021 9:09 AM
[2021-01-20 09:45] VITALS: BP 127/84; BP 91/67; PULSE 56; RESP 16; O2SAT 97
--- NOTE | 2021-01-20 09:45 | OP.CCLET_ITS ---
01/20/2021 Vinnie Nash [address] [place] [address] Re : Colonoscopy procedure for Norberto Sosa Dear Dr. Nash This procedure was performed on Wednesday, January 20, 2021. My impressions and recommendations are as follows: Impressions : - One less than 5 mm polyp in the rectum, removed with a cold biopsy forceps. Resected and retrieved. - One less than 5 mm polyp in the rectum, removed with a hot snare. Resected and retrieved. - The examination was otherwise normal on direct and retroflexion views. Recommendations : - Discharge patient to home. - Resume previous diet. - Continue present medications. - Await pathology results. - Repeat colonoscopy in 5 years for surveillance based on pathology results. My findings are described in the full procedure note, which is enclosed. If I can be of further assistance, please feel free to contact me at Doctor phone number(s): , Work: . Sincerely, MD Leigha Puentes MD 01/20/2021 9:44:15 AM This report has been signed electronically.
[2021-01-20 09:50] VITALS: BP 102/68; BP 127/84; PULSE 57; RESP 16; O2SAT 97
[2021-01-20 09:58] VITALS: BP 109/70; BP 127/84; PULSE 55; RESP 16; TEMP 36.1; O2SAT 99
[2021-01-20 10:17] VITALS: BP 127/84
== END 2021-01-20 10:20 ==
LOC: EN 08:05 → AC 08:05
PROVIDERS: PCP Family Medicine; Referring Provider Surgery; Visit Provider Surgery
PROC: 0DJD8ZZ Inspection of Lower Intestinal Tract, Via Natural or Artificial Opening Endoscopic (ICD-10-PCS; CPT 45378; principal; 2021-01-20 09:25)
DX: Z12.11 Encounter for screening for malignant neoplasm of colon (principal); Z86.73 Personal history of transient ischemic attack (TIA), and cerebral infarction without residual deficits; E78.00 Pure hypercholesterolemia, unspecified; F17.210 Nicotine dependence, cigarettes, uncomplicated; Z79.82 Long term (current) use of aspirin; J45.909 Unspecified asthma, uncomplicated; K62.1 Rectal polyp
CPT/HCPCS: 45380; 45385; 88305; J7120; J2405

== ENCOUNTER → 2021-12-02 | Outpatient (CLI) | payer BC, SELFPAY ==
[2021-12-02 09:59] LABS: Absolute Lymphocyte Count 2.35 X10^3/uL (0.83-4.51); Absolute Neutrophil Count 4.6 X10^3/uL (2.0-7.7); Basophil# 0.08 X10^3/uL; Eosinophil# 0.19 X10^3/uL; Eosinophils% 2.5 % (0-5); Hemoglobin 16.8 g/dL (13.0-16.5); Lymphocyte # 2.35 X10^3/ul (0.83-4.51); Lymphocyte % 30.5 % (19-41); Mean Corp Hgb Conc 33.6 g/dL (32-36); Mean Corpuscular Hgb 31.1 pg (27.0-32.0); Mean Corpuscular Volume 92.4 fL (80-94); Mean Platelet Vol. 12.8 fl (6.2-12.0); Monocyte# 0.51 X10^3/uL; Monocyte% 6.6 % (0-10); NRBC Flagged by Analyzer 0 % (0-5); Neutrophil # 4.56 X10^3/uL (2.7-7.7); Neutrophil % 59.1 % (47-70); Platelet Count 216 K/mm3 (150-450); RBC Distribution Width CV 13.4 % (11.6-14.6); RBC Distribution Width SD 46.1 fl (35.1-43.9); Red Blood Count 5.41 M/mm3 (4.6-6.2); White Blood Count 7.7 K/mm3 (4.4-11.0)
[2021-12-02 11:00] LABS: ALB/GLOB Ratio 1.3 RATIO (0.9-2.4); AST(SGOT) 18 U/L (15-37); Alanine Aminotransfer ALT/SGPT 29 U/L (16-61); Alkaline Phosphatase 67 U/L (45-117); Anion Gap 5 (5-15); BUN 22 mg/dL (7-18); BUN/Creat Ratio 24.6 RATIO (10-20); Calcium,Total 8.6 mg/dL (8.5-10.1); Chloride 107 mmol/L (98-107); Cholesterol 136 mg/dL (200); EST Glomerular Filtration Rate 91 mL/min (>60); Est Glom Filt Rate - Afr Amer 110 mL/min (>60); Globulin 3.1 g/dL (2.2-4.2); Glucose 96 mg/dL (74-106); High Density Lipoprotein 71 mg/dL; PSA,Total - Annual Screen 0.94 ng/mL (0.00-4.00); Potassium 4.1 mmol/L (3.5-5.1); Protein, Total 7.1 g/dL (6.4-8.2); Sodium Level 140 mmol/L (136-145); Triglycerides 73 mg/dL; Very Low Density Lipoprotein 15 mg/dL (5-40)
== END | disposition home or self-care (01) ==
LOC: MTLAB 07:02
PROVIDERS: PCP Family Medicine; Referring Provider Family Medicine; Visit Provider Family Medicine
DX: Z00.00 Encounter for general adult medical examination without abnormal findings (principal); Z12.5 Encounter for screening for malignant neoplasm of prostate
CPT/HCPCS: 36415; 80053; 80061; 84153; 85025; G0103

== ENCOUNTER → 2022-07-10 | Outpatient (CLI) | payer BC, SELFPAY ==
[2022-07-10 18:14] LABS: CPK Total, Creatine Kinase 80 U/L (39-308); CRP < 2.90 mg/L (0.0-3.0)
[2022-07-10 18:45] LABS: Erythrocyte Sedimentation Rate 10 mm/hr (0-20)
[2022-07-13 14:32] LABS: ANTINUCLEAR ANTIBODIES DIRECT Negative (Negative)
== END | disposition home or self-care (01) ==
LOC: BFHLAB 15:18
PROVIDERS: PCP Family Medicine; Visit Provider Family Medicine
DX: M13.0 Polyarthritis, unspecified (principal)
CPT/HCPCS: 82550; 85652; 86038; 86140; 86225; 86235

== ENCOUNTER → 2023-01-29 | Outpatient (CLI) | payer MEDICARE, SELFPAY ==
[2023-01-29 10:03] LABS: Absolute Lymphocyte Count 2.39 X10^3/uL (0.83-4.51); Basophil# 0.07 X10^3/uL; Basophil% 0.8 % (0-1); Eosinophil# 0.24 X10^3/uL; Eosinophils% 2.9 % (0-5); Hematocrit 50.1 % (40-54); Hemoglobin 16.2 g/dL (13.0-16.5); Lymphocyte # 2.39 X10^3/ul (0.83-4.51); Lymphocyte % 28.6 % (19-41); Mean Corp Hgb Conc 32.3 g/dL (32-36); Mean Corpuscular Hgb 30.4 pg (27.0-32.0); Mean Platelet Vol. 12.9 fl (6.2-12.0); Monocyte# 0.61 X10^3/uL; Monocyte% 7.3 % (0-10); NRBC Flagged by Analyzer 0 % (0-5); Neutrophil # 5.01 X10^3/uL (2.7-7.7); Platelet Count 212 K/mm3 (150-450); RBC Distribution Width CV 14.1 % (11.6-14.6); Red Blood Count 5.33 M/mm3 (4.6-6.2); White Blood Count 8.4 K/mm3 (4.4-11.0)
[2023-01-29 10:42] LABS: ALB/GLOB Ratio 1.2 RATIO (0.9-2.4); AST(SGOT) 14 U/L (15-37); Alanine Aminotransfer ALT/SGPT 29 U/L (16-61); Albumin, Serum 3.7 g/dL (3.2-5.0); Alkaline Phosphatase 68 U/L (45-117); Anion Gap 7 (5-15); BUN 17 mg/dL (7-18); BUN/Creat Ratio 19.1 RATIO (10-20); Calcium,Total 8.9 mg/dL (8.5-10.1); Chloride 111 mmol/L (98-107); Cholesterol 123 mg/dL (200); Creatinine, Serum 0.89 mg/dL (0.70-1.30); EST Glomerular Filtration Rate 91 mL/min (>60); Est Glom Filt Rate - Afr Amer 111 mL/min (>60); Globulin 3.2 g/dL (2.2-4.2); Glucose 97 mg/dL (74-106); High Density Lipoprotein 78 mg/dL; PSA,Total - Annual Screen 1.01 ng/mL (0.00-4.00); Potassium 4.3 mmol/L (3.5-5.1); Protein, Total 6.9 g/dL (6.4-8.2); Sodium Level 144 mmol/L (136-145); Triglycerides 71 mg/dL; Very Low Density Lipoprotein 14 mg/dL (5-40)
== END | disposition home or self-care (01) ==
LOC: MTLAB 07:04
PROVIDERS: PCP Family Medicine; Referring Provider Family Medicine; Visit Provider Family Medicine
DX: Z00.00 Encounter for general adult medical examination without abnormal findings (principal)
CPT/HCPCS: 36415; 80053; 80061; 84153; 85025; G0103

== ENCOUNTER → 2024-01-28 | Outpatient (CLI) | payer MEDICARE, SELFPAY ==
[2024-01-28 10:28] LABS: Absolute Lymphocyte Count 2.56 X10^3/uL (0.83-4.51); Absolute Neutrophil Count 4.9 X10^3/uL (2.0-7.7); Basophil# 0.07 X10^3/uL; Basophil% 0.8 % (0-1); Eosinophil# 0.23 X10^3/uL; Eosinophils% 2.8 % (0-5); Hematocrit 50.6 % (40-54); Hemoglobin 16.4 g/dL (13.0-16.5); Lymphocyte # 2.56 X10^3/ul (0.83-4.51); Lymphocyte % 30.8 % (19-41); Mean Corp Hgb Conc 32.4 g/dL (32-36); Mean Corpuscular Hgb 30.3 pg (27.0-32.0); Mean Corpuscular Volume 93.5 fL (80-94); Mean Platelet Vol. 13.2 fl (6.2-12.0); Monocyte# 0.55 X10^3/uL; Monocyte% 6.6 % (0-10); NRBC Flagged by Analyzer 0 % (0-5); Neutrophil # 4.86 X10^3/uL (2.7-7.7); Neutrophil % 58.6 % (47-70); Platelet Count 208 K/mm3 (150-450); RBC Distribution Width CV 13.9 % (11.6-14.6); Red Blood Count 5.41 M/mm3 (4.6-6.2); White Blood Count 8.3 K/mm3 (4.4-11.0)
[2024-01-28 10:50] LABS: ALB/GLOB Ratio 1.3 RATIO (0.9-2.4); AST(SGOT) 15 U/L (15-37); Alanine Aminotransfer ALT/SGPT 28 U/L (16-61); Albumin, Serum 4.1 g/dL (3.2-5.0); Alkaline Phosphatase 82 U/L (45-117); Anion Gap 5 (5-15); BUN 12 mg/dL (7-18); BUN/Creat Ratio 14.9 RATIO (10-20); Calcium,Total 9.6 mg/dL (8.5-10.1); Chloride 106 mmol/L (98-107); Cholesterol 142 mg/dL (200); Creatinine, Serum 0.81 mg/dL (0.70-1.30); EST Glomerular Filtration Rate 102 mL/min (>60); Est Glom Filt Rate - Afr Amer 124 mL/min (>60); Globulin 3.2 g/dL (2.2-4.2); Glucose 97 mg/dL (74-106); High Density Lipoprotein 88 mg/dL; Protein, Total 7.3 g/dL (6.4-8.2); Sodium Level 141 mmol/L (136-145); Triglycerides 55 mg/dL; Very Low Density Lipoprotein 11 mg/dL (5-40)
== END | disposition home or self-care (01) ==
LOC: MTLAB 07:07
PROVIDERS: PCP Family Medicine; Referring Provider Family Medicine; Visit Provider Family Medicine
DX: I67.9 Cerebrovascular disease, unspecified (principal); I10 Essential (primary) hypertension; E78.5 Hyperlipidemia, unspecified; Z12.5 Encounter for screening for malignant neoplasm of prostate
CPT/HCPCS: 36415; 80053; 80061; 85025

== ENCOUNTER → 2024-02-04 | Outpatient (CLI) | payer MEDICARE, SELFPAY ==
[2024-02-04 18:08] LABS: PSA,Total - Annual Screen 0.63 ng/mL (0.00-4.00)
== END | disposition home or self-care (01) ==
LOC: BFHLAB 14:24
PROVIDERS: PCP Family Medicine; Visit Provider Family Medicine
DX: Z12.5 Encounter for screening for malignant neoplasm of prostate (principal); I67.9 Cerebrovascular disease, unspecified; I10 Essential (primary) hypertension; E78.5 Hyperlipidemia, unspecified
CPT/HCPCS: 36415; 84153; G0103

== ENCOUNTER → 2025-02-02 | Outpatient (CLI) | payer MEDICARE, SELFPAY ==
--- OUTSIDE RECORDS SUMMARY | 2025-02-02 07:20 | XMS RPT_ITS | CCD ---
Author Organization [facility] Team Providers Care Practice Lead Name Role Phone Vinnie Nash Primary Care Unavailable Vinnie Nash Attending Unavailable Vinnie Nash Referring Unavailable Vinnie Nash Attending Unavailable Vinnie Nash Primary Care Unavailable Vinnie Nash Primary Care Unavailable Vinnie Nash Attending Unavailable Allergies Allergy Classification Reported Allergen(s) Allergy Type Date of Onset Reaction(s) Facility (4 sources) Penicillins; Translations: [Penicillins] Allergy to substance 01-20-2021 [facility] Medications Current Medications Medication Drug Class(es) Dates Sig (Normalized) Sig (Original) aspirin 81 mg delayed release oral tablet (3 sources) Platelet Aggregation Inhibitor, Nonsteroidal Anti-inflammatory Drug Start: 12-13-2020 take 81 mg by mouth once daily Aspirin Active 81 MG PO DAILY December 13, 2020 12:00am atorvastatin 40 mg oral tablet (3 sources) HMG-CoA Reductase Inhibitor Start: 12-13-2020 take 40 mg by mouth once daily Atorvastatin Active 40 MG PO DAILY December 13, 2020 12:00am Problems Active Problems Problem Classification Problem Date Documented Date Episodic/Chronic Acute cerebrovascular disease (3 sources) Cerebrovascular accident; Translations: [Cerebral infarction, unspecified] 01-16-2021 Chronic Disorders of lipid metabolism (3 sources) Hypercholesterolemia; Translations: [Pure hypercholesterolemia, unspecified] 12-13-2020 Chronic Other and ill-defined cerebrovascular disease (1 source) Cerebrovascular disease, unspecified; Translations: [Cerebrovascular disease, unspecified] Onset: 02-23-2024 Chronic Past or Other Problems Problem Classification Problem Date Documented Da te Episodic/Chronic Other screening for suspected conditions (not mental disorders or infectious disease) (4 sources) Patient encounter status; Translations: [Encounter for screening for malignant neoplasm of colon] Onset: 02-22-2024 12-13-2020 Episodic Results Test Name Value Interpretation Reference Range Facility PSA,Total - Annual Screenon 02-04-2024 PSA,TOT SCREEN 0.63 ng/mL Normal 0.00-4.00 [facility] Comment on above: Order Comment: DRAWN 02/03. Result Comment: This test was performed using the TPSA assay method for the [employer] chemistry system. Values obtained with different assay methods cannot be used interchangably. When changing PSA assays in the course of monitoring a patient, additional sequential testing should be carried out to confirm baseline values. Performed By: #### L 501.9910 #### [facility] [address] [place], [address] CBC W/Diff, Automatedon 01-17 Absolute Lymph 2.56 X10 3/uL Normal 0.83-4.51 [facility] Comment on above: Performed By: #### L 500.4100, L100.0100, L500.4050 #### [facility] [address] [place], [address] Absolute Neut 4.9 X10 3/uL Normal 2.0-7.7 [facility] Comment on above: Performed By: #### L 500.4100, L100.0100, L500.4050 #### [facility] [address] [place], [address] Basophils/100 WBC (Bld) 0.8 % Normal 0-1 [facility] Comment on above: Performed By: #### L 500.4100, L100.0100, L500.4050 #### [facility] [address] [place], [address] Eosinophils/100 WBC (Bld) 2.8 % Normal 0-5 [facility] Comment on above: Performed By: #### L 500.4100, L100.0100, [id number] #### [facility] [address] [place], [address] Erythrocyte distribution width (RBC) [Ratio] 13.9 % Normal 11.6-14.6 [facility] Comment on above: Performed By: #### L 500.4100, L100.0100, L500.4050 #### [facility] [address] [place], [address] Hematocrit (Bld) [Volume fraction] 50.6 % Normal 40-54 [facility] Comment on above: Performed By: #### L 500.4100, L100.0100, L500.4050 #### [facility] [address] [place], [address] Hemoglobin (Bld) [Mass/Vol] 16.4 g/dL Normal 13.0-16.5 [facility] Comment on above: Performed By: #### L 500.4100, L100.0100, L500.4050 #### [facility] [address] [place], [address] IG% 0.400 Normal 0.0-0.9 [facility] Comment on above: Result Comment: IG% - Immature Granulocytes (promyelocytes, myelocytes and metamyelocytes) > 1% indicates that a LEFT SHIFT is Present. Performed By: #### L 500.4100, L100.0100, L500.4050 #### [facility] [address] [place], [address] Lymphocytes/100 WBC (Bld) 30.8 % Normal 19-41 [facility] Comment on above: Performed By: #### L 500.4100, L100.0100, L500.4050 #### [facility] [address] [place], [address] MCH (RBC) [Entitic mass] 30.3 pg Normal 27.0-32.0 [facility] Comment on above: Performed By: #### L 500.4100, L100.0100, L500.4050 #### [facility] [address] [place], [address] MCHC (RBC) [Mass/Vol] 32.4 g/dL Normal 32-36 [facility] Comment on above: Performed By: #### L 500.4100, L100.0100, [id number] #### [facility] [address] [place], [address] MCV (RBC) [Entitic vol] 93.5 fL Normal 80-94 [facility] Comment on above: Performed By: #### L 500.4100, L100.0100, [id number] #### [facility] [address] [place], [address] Monocytes/100 WBC (Bld) 6.6 % Normal 0-10 [facility] Comment on above: Performed By: #### L 500.4100, L100.0100, [id number] #### [facility] [address] [place], [address] Neutrophils/100 WBC (Bld) 58.6 % Normal 47-70 [facility] Comment on above: Performed By: #### L 500.4100, L100.0100, [id number] #### [facility] [address] [place], [address] Nucleated RBC (Bld) [#/Vol] 0 10*3/uL Normal 0-5 [facility] Comment on above: Performed By: #### L 500.4100, L100.0100, L500.4050 #### [facility] [address] [place], [address] Platelet mean volume (Bld) [Entitic vol] 13.2 fL High 6.2-12.0 [facility] Comment on above: Performed By: #### L 500.4100, L100.0100, L500.4050 #### [facility] [address] [place], [address] Platelets (Bld) [#/Vol] 208 10*3/uL Normal 150-450 [facility] Comment on above: Performed By: #### L 500.4100, L100.0100, L500.4050 #### [facility] [address] [place], [address] RBC (Bld) [#/Vol] 5.41 10*6/uL Normal 4.6-6.2 [facility] Comment on above: Performed By: #### L 500.4100, L100.0100, L500.4050 #### [facility] [address] [place], [address] RDW SD 48.0 fl High 35.1-43.9 [facility] Comment on above: Performed By: #### L 500.4100, L100.0100, L500.4050 #### [facility] [address] [place], [address] WBC (Bld) [#/Vol] 8.3 10*3/uL Normal 4.4-11.0 [facility] Comment on above: Performed By: #### L 500.4100, L100.0100, L500.4050 #### [facility] [address] [place], [address] Comprehensive Metabolic Prof [facility] 01-28-2024 Albumin [Mass/Vol] 4.1 g/dL Normal 3.2-5.0 [facility] Comment on above: Performed By: #### L 500.4100, L100.0100, L500.4050 #### [facility] [address] [place], [address] Albumin/Globulin [Mass ratio] 1.3 {ratio} Normal 0.9-2.4 [facility] Comment on above: Performed By: #### L 500.4100, L100.0100, L500.4050 #### [facility] [address] [place], [address] ALK P 82 U/L Normal 45-117 [facility] Comment on above: Performed By: #### L 500.4100, L100.0100, [id number] #### [facility] [address] [place], [address] ALT [Catalytic activity/Vol] 28 U/L Normal 16-61 [facility] Comment on above: Performed By: #### L 500.4100, L100.0100, [id number] #### [facility] [address] [place], [address] AST [Catalytic activity/Vol] 15 U/L Normal 15-37 [facility] Comment on above: Performed By: #### L 500.4100, L100.0100, [id number] #### [facility] [address] [place], [address] Bilirubin [Mass/Vol] 0.50 mg/dL Normal 0.20-1.00 [facility] Comment on above: Result Comment: For patients on eltrombopag therapy, use of Dimension [place] TBIL is not recommended. Performed By: #### L 500.4100, L100.0100, L500.4050 #### [facility] [address] [place], [address] BUN/CRE 14.9 RATIO Normal 10-20 [facility] Comment on above: Performed By: #### L 500.4100, L100.0100, [id number] #### [facility] [address] [place], [address] CA,Total 9.6 mg/dL Normal 8.5-10.1 [facility] Comment on above: Performed By: #### L 500.4100, L100.0100, [id number] #### [facility] [address] [place], [address] Chloride [Moles/Vol] 106 mmol/L Normal 98-107 [facility] Comment on above: Performed By: #### L 500.4100, L100.0100, L500.4050 #### [facility] [address] [place], [address] CO2 [Moles/Vol] 30.0 mmol/L Normal 21.0-32.0 [facility] Comment on above: Performed By: #### L 500.4100, L100.0100, L500.4050 #### [facility] [address] [place], [address] Creatinine [Mass/Vol] 0.81 mg/dL Normal 0.70-1.30 [facility] Comment on above: Result Comment: The validity of the calculated GFR GFRAA in patients over 70 years has not been determined. Clinical correlation is essential. Performed By: #### L 500.4100, L100.0100, L500.4050 #### [facility] [address] [place], [address] EST GFR - AA 124 mL/min Normal >60 [facility] Comment on above: Result Comment: Afri can [place] GFR Calc Performed By: #### L 500.4100, L100.0100, L500.4050 #### [facility] [address] [place], [address] GAP 5 Normal 5-15 [facility] Comment on above: Performed By: #### L 500.4100, L100.0100, L500.4050 #### [facility] [address] [place], [address] GFR/1.73 sq M.predicted among non-blacks MDRD (S/P/Bld) [Vol rate/Area] 102 mL/min/{1.73_m2} Normal >60 [facility] Comment on above: Result Comment: Non- GFR Calc Performed By: #### L 500.4100, L100.0100, L500.4050 #### [facility] [address] [place], [address] Globulin (S) [Mass/Vol] 3.2 g/dL Normal 2.2-4.2 [facility] Comment on above: Performed By: #### L 500.4100, L100.0100, L500.4050 #### [facility] [address] [place], [address] Glucose [Mass/Vol] 97 mg/dL Normal 74-106 [facility] Comment on above: Performed By: #### L 500.4100, L100.0100, L500.4050 #### [facility] [address] [place], [address] Potassium [Moles/Vol] 4.0 mmol/L Normal 3.5-5.1 [facility] Comment on above: Performed By: #### L 500.4100, L100.0100, L500.4050 #### [facility] [address] [place], [address] Sodium [Moles/Vol] 141 mmol/L Normal 136-145 [facility] Comment on above: Performed By: #### L 500.4100, L100.0100, L500.4050 #### [facility] [address] [place], [address] T PROT 7.3 g/dL Normal 6.4-8.2 [facility] Comment on above: Performed By: #### L 500.4100, L100.0100, L500.4050 #### [facility] [address] [place], [address] Urea nitrogen [Mass/Vol] 12 mg/dL Normal 7-18 [facility] Comment on above: Performed By: #### L 500.4100, L100.0100, L500.4050 #### [facility] [address] [place], [address] Lipid Profileon 01-28-2024 Cholesterol [Mass/Vol] 142 mg/dL Normal 200 [facility] Comment on above: Result Comment: <200 mg/dL Desirable 200-240 mg/dL Borderline >240 mg/dL High Risk Performed By: #### L 500.4100, L100.0100, L500.4050 #### [facility] [address] [place], [address] Cholesterol in HDL [Mass/Vol] 88 mg/dL Normal [facility] Comment on above: Result Comment: The drugs N-Acetylcysteine and Metamizole may falsely depress this assay. Reference Range HDL <40 mg/dL Low HDL Cholesterol HDL >or= 60 mg/dL High HDL Cholesterol Performed By: #### L 500.4100, L100.0100, L500.4050 #### [facility] [address] [place], [address] Cholesterol in LDL [Mass/Vol] 43 mg/dL Normal 0-130 [facility] Comment on above: Performed By: #### L 500.4100, L100.0100, L500.4050 #### [facility] [address] [place], [address] Cholesterol in VLDL [Mass/Vol] 11 mg/dL Normal 5-40 [facility] Comment on above: Performed By: #### L 500.4100, L100.0100, L500.4050 #### [facility] [address] [place], [address] Triglyceride [Mass/Vol] 55 mg/dL Normal [facility] Comment on above: Result Comment: The drugs N-Acetylcysteine and Metamizole may falsely depress this assay. Serum Triglycerides Reference Interval Normal <150 mg/dL Borderline high 150 - 199 mg/dL High 200 - 499 mg/dL Very High > or = 500 mg/dL Performed By: #### L 500.1040, L100.0100, L500.4050 #### [facility] [address] [place], [address] Absolute lymphocyte countOrd ered By: Vinnie Nash on 01-29-2023 Lymphocytes Auto (Unsp spec) [#/Vol] 2.39 10*3/uL 0.83-4.51 [facility] Basophil percentageOrdered B y: Vinnie Nash on 01-29-2023 Basophils/100 WBC (Bld) 0.8 % 0-1 [facility] Bilirubin [Mass/Vol] 0.50 mg/dL 0.20-1.00 [facility] Comment on above: For patients on eltr ombopag therapy, use of Dimension [place] TBIL is not recommended. Chloride [Moles/Vol] 111 mmol/L 98-107 [facility] Cholesterol [Mass/Vol] 123 mg/dL <200 [facility] Comment on above: <200 mg/dL Desirable 200-240 mg/dL Borderline >240 mg/dL High Risk Eosinophils/100 WBC (Bld) 2.9 % 0-5 [facility] Glucose [Mass/Vol] 97 mg/dL 74-106 [facility] Neutrophils (Bld) [#/Vol] 5.0 10*3/uL 2.0-7.7 [facility] Neutrophils/100 WBC (Bld) 60.0 % 47-70 [facility] Potassium [Moles/Vol] 4.3 mmol/L 3.5-5.1 [facility] Protein [Mass/Vol] 6.9 g/dL 6.4-8.2 [facility] Sodium [Moles/Vol] 144 mmol/L 136-145 [facility] Triglyceride [Mass/Vol] 71 mg/dL <199 [facility] Comment on above: The drugs N-Acetylcy steine and Metamizole may falsely depress this assay.Serum Triglycerides Reference Interval Normal <150 mg/dL Borderline high 150 - 199 mg/dL High 200 - 499 mg/dL Very High > or = 500 mg/dL WBC (Bld) [#/Vol] 8.4 10*3/uL 4.4-11.0 [facility] Blood erythrocytes count (nu mber/volume)Ordered By: Vinnie Nash on 01-29-2023 RBC (Bld) [#/Vol] 5.33 10*6/uL 4.6-6.2 [facility] Blood hemoglobin measurement (mass/volume)Ordered By: Vinnie Nash on 01-29-2023 Hemoglobin (Bld) [Mass/Vol] 16.2 g/dL 13.0-16.5 [facility] Blood lymphocytes/100 leukoc ytesOrdered By: Vinnie Nash on 01-29-2023 Lymphocytes/100 WBC (Bld) 28.6 % 19-41 [facility] Blood monocytes/100 leukocyt esOrdered By: Vinnie Nash on 01-29-2023 Monocytes/100 WBC (Bld) 7.3 % 0-10 [facility] Blood platelet mean volumeOr dered By: Vinnie Nash on 01-29-2023 Platelet mean volume (Bld) [Entitic vol] 12.9 fL 6.2-12.0 [facility] Determination of erythrocyte mean corpuscular volume (MCV)Ordered By: Vinnie Nash on 01-29-2023 MCV (RBC) [Entitic vol] 94.0 fL 80-94 [facility] Hematocrit Auto (Bld) [Volum e fraction]Ordered By: Vinnie Nash on 01-29-2023 Hematocrit (Bld) [Volume fraction] 50.1 % 40-54 [facility] - Chemistry and C hemistry - challengeOrdered By: Vinnie Nash on 01-29-2023 ALP [Catalytic activity/Vol] 68 U/L 45-117 [facility] ALT [Catalytic activity/Vol] 29 U/L 16-61 [facility] CO2 [Moles/Vol] 26.0 mmol/L 21.0-32.0 [facility] Globulin (S) [Mass/Vol] 3.2 g/dL 2.2-4.2 [facility] Urea nitrogen/Creatinine [Mass ratio] 19.1 mg/mg 10-20 [facility] - Hematology and Cell countsOrdered By: Vinnie Nash on 01-29-2023 Erythrocyte distribution width (RBC) [Entitic vol] 49.0 fL 35.1-43.9 [facility] Erythrocyte distribution width (RBC) [Ratio] 14.1 % 11.6-14.6 [facility] Immature granulocytes/100 WBC (Bld) 0.400 % 0.0-0.9 [facility] Comment on above: IG% - Immature Granu locytes (promyelocytes, myelocytes and metamyelocytes) > 1% indicates that a LEFT SHIFT is Present. MCH (RBC) [Entitic mass] 30.4 pg 27.0-32.0 [facility] Nucleated RBC/100 WBC (Bld) [Ratio] 0 % 0-5 [facility] MCHC Auto (RBC) [Mass/Vol]Or dered By: Vinnie Nash on 01-29-2023 MCHC (RBC) [Mass/Vol] 32.3 g/dL 32-36 [facility] No Panel InformationOrdered By: Vinnie Nash on 01-29-2023 Estimated GFR (MDRD) Amer 111 mL/min >60 [facility] Comment on above: GFR Calc Estimated GFR (MDRD) Non-Af Amer 91 mL/min >60 [facility] Comment on above: Non- GFR Calc Prostate Specific Antigen Screen 1.01 ng/mL 0.00-4.00 [facility] Comment on above: This test was perfor med using the TPSA assay method for the[facility] chemistry system. Values obtained with differentassay methods cannot be used interchangably.When changing PSA assays in the course of monitoring apatient, additional sequential testing should be carriedout to confirm baseline values. Platelets bldOrdered By: Marilyn Nash on 01-29-2023 Platelets (Bld) [#/Vol] 212 10*3/uL 150-450 [facility] Serum or plasma albumin nicanor urement (mass/volume)Ordered By: Vinnie Nash on 01-29-2023 Albumin [Mass/Vol] 3.7 g/dL 3.2-5.0 [facility] Serum or plasma albumin/glob ulin mass ratioOrdered By: Vinnie Nash on 01-29-2023 Albumin/Globulin [Mass ratio] 1.2 {ratio} 0.9-2.4 [facility] Serum or plasma calcium nicanor urement (mass/volume)Ordered By: Vinnie Nash on 01-29-2023 Calcium [Mass/Vol] 8.9 mg/dL 8.5-10.1 [facility] Serum or plasma cholesterol in HDL measurement (mass/volume)Ordered By: Vinnie Nash on 01-29-2023 Cholesterol in HDL [Mass/Vol] 78 mg/dL >40 [facility] Comment on above: The drugs N-Acetylcy steine and Metamizole may falsely depress this assay. Reference Range HDL <40 mg/dL Low HDL Cholesterol HDL >or= 60 mg/dL High HDL Cholesterol Serum or plasma cholesterol in VLDL measurement (mass/volume)Ordered By: Vinnie Nash on 01-29-2023 Cholesterol in VLDL [Mass/Vol] 14 mg/dL 5-40 [facility] Serum or plasma creatinine m easurement (mass/volume)Ordered By: Vinnie Nash on 01-29-2023 Creatinine [Mass/Vol] 0.89 mg/dL 0.70-1.30 [facility] Comment on above: The validity of the calculated GFR & GFRAA in patients over 70 years has not been determined. Clinical correlation is essential. Serum or plasma low density lipoprotein (LDL) cholesterol measurement (mass/volume)Ordered By: Vinnie Nash on 01-29-2023 Cholesterol in LDL [Mass/Vol] 31 mg/dL 0-130 [facility] Serum or plasma urea nitroge n measurement (mass/volume)Ordered By: Vinnie Nash on 01-29-2023 Urea nitrogen [Mass/Vol] 17 mg/dL 7-18 [facility] Thin prep Papanicolaou smear with manual screeningOrdered By: Vinnie Nash on 01-29-2023 Thin prep Papanicolaou smear with manual screening 14 U/L 15-37 [facility] Thin prep Papanicolaou smear with manual screening 7 5-15 [facility] Erythrocyte sedimentation ra teOrdered By: Dr. Nash on 07-10-2022 ESR (Bld) [Velocity] 10 mm/h 0-20 [facility] - Chemistry and C hemistry - challengeOrdered By: Dr. Nash on 07-10-2022 CK [Catalytic activity/Vol] 80 U/L 39-308 [facility] No Panel InformationOrdered By: Dr. Nash on 07-10-2022 Anti-Nuclear Antibody Screen Negative Negative [facility] Comment on above: Performed at: [facility] [address] [id number] [place], [place] [id number] Director: Ozzy Patel PhD, Phone: [phone] Serum or plasma C reactive p rotein measurement (mass/volume)Ordered By: Dr. Nash on 07-10-2022 CRP [Mass/Vol] mg/L 0.0-3.0 [facility] Comment on above: C-Reactive Protein ( CRP) provides useful information for thediagnosis, therapy and monitoring of inflammatory processesand associated diseases. For the evaluation of Relative Riskfor Cardiovascular Disease, a High Sensitivity CRP (HSCRP)should be ordered. Absolute lymphocyte counton 12-02-2021 Lymphocytes Auto (Unsp spec) [#/Vol] 2.35 10*3/uL 0.83-4.51 [facility] Work Phone: Basophil percentageon 2021 Basophils/100 WBC (Bld) 1.0 % 0-1 [facility] Work Phone: Bilirubin [Mass/Vol] 0.70 mg/dL 0.20-1.00 [facility] Work Phone: Comment on above: For patients on eltr ombopag therapy, use of Dimension [place] TBIL is not recommended. Chloride [Moles/Vol] 107 mmol/L 98-107 [facility] Work Phone: Cholesterol [Mass/Vol] 136 mg/dL <200 [facility] Work Phone: Comment on above: <200 mg/dL Desirable 200-240 mg/dL Borderline >240 mg/dL High Risk Eosinophils/100 WBC (Bld) 2.5 % 0-5 [facility] Work Phone: Glucose [Mass/Vol] 96 mg/dL 74-106 [facility] Work Phone: Neutrophils (Bld) [#/Vol] 4.6 10*3/uL 2.0-7.7 [facility] Work Phone: Neutrophils/100 WBC (Bld) 59.1 % 47-70 [facility] Work Phone: Potassium [Moles/Vol] 4.1 mmol/L 3.5-5.1 [facility] Work Phone: Protein [Mass/Vol] 7.1 g/dL 6.4-8.2 [facility] Work Phone: Sodium [Moles/Vol] 140 mmol/L 136-145 [facility] Work Phone: Triglyceride [Mass/Vol] 73 mg/dL <199 [facility] Work Phone: Comment on above: The drugs N-Acetylcy steine and Metamizole may falsely depress this assay.Serum Triglycerides Reference Interval Normal <150 mg/dL Borderline high 150 - 199 mg/dL High 200 - 499 mg/dL Very High > or = 500 mg/dL WBC (Bld) [#/Vol] 7.7 10*3/uL 4.4-11.0 [facility] Work Phone: Blood erythrocytes count (nu mber/volume)on 12-02-2021 RBC (Bld) [#/Vol] 5.41 10*6/uL 4.6-6.2 [facility] Work Phone: Blood hemoglobin measurement (mass/volume)on 12-02-2021 Hemoglobin (Bld) [Mass/Vol] 16.8 g/dL 13.0-16.5 [facility] Work Phone: Blood lymphocytes/100 leukoc yteson 12-02-2021 Lymphocytes/100 WBC (Bld) 30.5 % 19-41 [facility] Work Phone: Blood monocytes/100 leukocyt eson 12-02-2021 Monocytes/100 WBC (Bld) 6.6 % 0-10 [facility] Work Phone: Blood platelet mean volumeon 12-02-2021 Platelet mean volume (Bld) [Entitic vol] 12.8 fL 6.2-12.0 [facility] Work Phone: Determination of erythrocyte mean corpuscular volume (MCV)on 12-02-2021 MCV (RBC) [Entitic vol] 92.4 fL 80-94 [facility] Work Phone: Hematocrit Auto (Bld) [Volum e fraction]on 12-02-2021 Hematocrit (Bld) [Volume fraction] 50.0 % 40-54 [facility] Work Phone: Laboratory - Chemistry and C hemistry - challengeon 12-02-2021 ALP [Catalytic activity/Vol] 67 U/L 45-117 [facility] Work Phone: ALT [Catalytic activity/Vol] 29 U/L 16-61 [facility] Work Phone: CO2 [Moles/Vol] 28.0 mmol/L 21.0-32.0 [facility] Work Phone: Globulin (S) [Mass/Vol] 3.1 g/dL 2.2-4.2 [facility] Work Phone: Urea nitrogen/Creatinine [Mass ratio] 24.6 mg/mg 10-20 [facility] Work Phone: Laboratory - Hematology and Cell countson 12-02-2021 Erythrocyte distribution width (RBC) [Entitic vol] 46.1 fL 35.1-43.9 [facility] Work Phone: Erythrocyte distribution width (RBC) [Ratio] 13.4 % 11.6-14.6 [facility] Work Phone: Immature granulocytes/100 WBC (Bld) 0.300 % 0.0-0.9 [facility] Work Phone: Comment on above: IG% - Immature Granu locytes (promyelocytes, myelocytes and metamyelocytes) > 1% indicates that a LEFT SHIFT is Present. MCH (RBC) [Entitic mass] 31.1 pg 27.0-32.0 [facility] Work Phone: Nucleated RBC/100 WBC (Bld) [Ratio] 0 % 0-5 [facility] Work Phone: MCHC Auto (RBC) [Mass/Vol]on 12-02-2021 MCHC (RBC) [Mass/Vol] 33.6 g/dL 32-36 [facility] Work Phone: No Panel Informationon 12-02 Estimated GFR (MDRD) Amer 110 mL/min >60 [facility] Work Phone: Comment on above: GFR Calc Estimated GFR (MDRD) Non-Af Amer 91 mL/min >60 [facility] Work Phone: Comment on above: Non- GFR Calc Prostate Specific Antigen Screen 0.94 ng/mL 0.00-4.00 [facility] Work Phone: Comment on above: This test was perfor med using the TPSA assay method for [employer] chemistry system. Values obtained with differentassay methods cannot be used interchangably.When changing PSA assays in the course of monitoring apatient, additional sequential testing should be carriedout to confirm baseline values. Platelets bldon 12-02-2021 Platelets (Bld) [#/Vol] 216 10*3/uL 150-450 [facility] Work Phone: Serum or plasma albumin nicanor urement (mass/volume)on 12-02-2021 Albumin [Mass/Vol] 4.0 g/dL 3.2-5.0 [facility] Work Phone: Serum or plasma albumin/glob ulin mass ratioon 12-02-2021 Albumin/Globulin [Mass ratio] 1.3 {ratio} 0.9-2.4 [facility] Work Phone: Serum or plasma calcium nicanor urement (mass/volume)on 12-02-2021 Calcium [Mass/Vol] 8.6 mg/dL 8.5-10.1 [facility] Work Phone: Serum or plasma cholesterol in HDL measurement (mass/volume)on 12-02-2021 Cholesterol in HDL [Mass/Vol] 71 mg/dL >40 [facility] Work Phone: Comment on above: The drugs N-Acetylcy steine and Metamizole may falsely depress this assay. Reference Range HDL <40 mg/dL Low HDL Cholesterol HDL >or= 60 mg/dL High HDL Cholesterol Serum or plasma cholesterol in VLDL measurement (mass/volume)on 12-02-2021 Cholesterol in VLDL [Mass/Vol] 15 mg/dL 5-40 [facility] Work Phone: Serum or plasma creatinine m easurement (mass/volume)on 12-02-2021 Creatinine [Mass/Vol] 0.90 mg/dL 0.70-1.30 [facility] Work Phone: Comment on above: The validity of the calculated GFR & GFRAA in patients over 70 years has not been determined. Clinical correlation is essential. Serum or plasma low density lipoprotein (LDL) cholesterol measurement (mass/volume)on 12-02-2021 Cholesterol in LDL [Mass/Vol] 50 mg/dL 0-130 [facility] Work Phone: Serum or plasma urea nitroge n measurement (mass/volume)on 12-02-2021 Urea nitrogen [Mass/Vol] 22 mg/dL 7-18 [facility] Work Phone: Thin prep Papanicolaou smear with manual screeningon 12-02-2021 Thin prep Papanicolaou smear with manual screening 18 U/L 15-37 [facility] Work Phone: Thin prep Papanicolaou smear with manual screening 5 5-15 [facility] Work Phone: .Auto Diffon 05-13-2020 Ammonia (P) [Mass/Vol] 0.40 10 3/mcL Normal 0.09-1.40 [facility] ([place]) Comment on above: Performed By: #### A DERECK, BMP, CBC, GFR, ADIFF #### [facility] [address] [place] [id number] Basophils (Bld) [#/Vol] 0.10 10 3/mcL Normal 0.00-0.27 [facility] ([place]) Comment on above: Performed By: #### A DERECK, BMP, CBC, GFR, ADIFF #### [address] [address] Basophils/100 WBC (Bld) 0.8 % Normal 0.0-2.5 A [facility] ([place]) Comment on above: Performed By: #### A DERECK, BMP, CBC, GFR, ADIFF #### [address] [address] Eosinophils (Bld) [#/Vol] 0.20 10 3/mcL Normal 0.00-0.65 [facility] ([place]) Comment on above: Performed By: #### A DERECK, BMP, CBC, GFR, ADIFF #### [address] [address] Eosinophils/100 WBC (Bld) 2.4 % Normal 0.0-6.0 [facility] ([place]) Comment on above: Performed By: #### A DERECK, BMP, CBC, GFR, ADIFF #### [address] [address] Lymphocytes (Bld) [#/Vol] 1.20 10 3/mcL Normal 0.90-4.32 [facility] ([place]) Comment on above: Performed By: #### A DERECK, BMP, CBC, GFR, ADIFF #### [address] [address] Lymphocytes/100 WBC (Bld) 16.8 % Low 20.0-40.0 [facility] ([place]) Comment on above: Performed By: #### A DERECK, BMP, CBC, GFR, ADIFF #### [address] [address] Monocytes/100 WBC (Bld) 6.0 % Normal 2.0-13.0 [facility] ([place]) Comment on above: Performed By: #### A DERECK, BMP, CBC, GFR, ADIFF #### [address] [address] Neutrophils/100 WBC (Bld) 74.0 % Normal 50.0-75.0 [facility] ([place]) Comment on above: Performed By: #### A DERECK, BMP, CBC, GFR, ADIFF #### [address] [address] .GFRon 05-13-2020 GFR Non- >60 Normal [facility] ([place]) Comment on above: Result Comment: GFR Population mean for , Non- Americans Ages 20-29 = 116 mL/min/1.73 sq.m. Ages 30-39 = 107 mL/min/1.73 sq.m. Ages 40-49 = 99 mL/min/1.73 sq.m. Ages 50-59 = 93 mL/min/1.73 sq.m. Ages 60-69 = 85 mL/min/1.73 sq.m. Ages 70+ = 75 mL/min/1.73 sq.m. Chronic Kidney Disease: Less than 60 mL/min/1.73 square meters End Stage Renal Disease: Less than 15 mL/min/1.73 square meters Performed By: #### A DERECK, BMP, CBC, GFR, ADIFF #### [address] [address] GFR >60 Normal [facility] ([place]) Comment on above: Result Comment: GFR Population mean for , Non- Americans Ages 20-29 = 116 mL/min/1.73 sq.m. Ages 30-39 = 107 mL/min/1.73 sq.m. Ages 40-49 = 99 mL/min/1.73 sq.m. Ages 50-59 = 93 mL/min/1.73 sq.m. Ages 60-69 = 85 mL/min/1.73 sq.m. Ages 70+ = 75 mL/min/1.73 sq.m. Chronic Kidney Disease: Less than 60 mL/min/1.73 square meters End Stage Renal Disease: Less than 15 mL/min/1.73 square meters Performed By: #### A DERECK, BMP, CBC, GFR, ADIFF #### [address] [address] .NEUABSon 05-13-2020 Neutrophils (Bld) [#/Vol] 5.40 10 3/mcL Normal 2.25-8.10 [facility] ([place]) Comment on above: Performed By: #### A DERECK, BMP, CBC, GFR, ADIFF #### [address] [address] BMPon 05-13-2020 Calcium [Mass/Vol] 9.4 mg/dL Normal 8.7-10.4 [facility] ([place]) Comment on above: Result Comment: No te - New Reference Range in effect 19 Performed By: #### A DERECK, BMP, CBC, GFR, ADIFF #### [address] [address] Chloride [Moles/Vol] 107 mmol/L Normal 98-110 [facility] ([place]) Comment on above: Performed By: #### A DERECK, BMP, CBC, GFR, ADIFF #### [address] [address] CO2 [Moles/Vol] 29 mmol/L Normal 22-32 [facility] ([place]) Comment on above: Performed By: #### A DERECK, BMP, CBC, GFR, ADIFF #### [address] [address] Creatinine [Mass/Vol] 0.65 mg/dL Normal 0.60-1.40 [facility] ([place]) Comment on above: Performed By: #### A DERECK, BMP, CBC, GFR, ADIFF #### [address] [address] Electrolyte Balance 7.0 mEq/L Normal 4.0-15.0 [facility] ([place]) Comment on above: Performed By: #### A DERECK, BMP, CBC, GFR, ADIFF #### [address] [address] Glucose [Mass/Vol] 70 mg/dL Low 82-115 [facility] ([place]) Comment on above: Performed By: #### A DERECK, BMP, CBC, GFR, ADIFF #### [address] [address] Potassium [Moles/Vol] 4.2 mmol/L Normal 3.5-5.0 [facility] ([place]) Comment on above: Result Comment: Spec imen slightly hemolyzed. Performed By: #### A DERECK, BMP, CBC, GFR, ADIFF #### [place] [id number] Sodium [Moles/Vol] 143 mmol/L Normal 136-145 [facility] ([place] Comment on above: Performed By: #### A DERECK, BMP, CBC, GFR, ADIFF #### [place] [id number] Urea nitrogen [Mass/Vol] 16.0 mg/dL Normal 8.0-22.0 [facility] ([place]) Comment on above: Performed By: #### A DERECK, BMP, CBC, GFR, ADIFF #### [place] [id number] Urea nitrogen/Creatinine [Mass ratio] 24.6 ratio High 10.0-22.0 [facility] ([place]) Comment on above: Performed By: #### A DERECK, BMP, CBC, GFR, ADIFF #### [place] [id number] CBCon 05-13-2020 Erythrocyte distribution width (RBC) [Ratio] 13.3 % Normal 11.5-15.5 [facility] ([place]) Comment on above: Performed By: #### A DERECK, BMP, CBC, GFR, ADIFF #### [place] [id number] Hematocrit (Bld) [Volume fraction] 44.6 % Normal 40.0-52.0 [facility] ([place]) Comment on above: Performed By: #### A DERECK, BMP, CBC, GFR, ADIFF #### [place] [id number] Hemoglobin (Bld) [Mass/Vol] 15.0 G/dL Normal 13.0-17.5 [facility] ([place]) Comment on above: Performed By: #### A DERECK, BMP, CBC, GFR, ADIFF #### [place] [id number] MCH (RBC) [Entitic mass] 30.4 pg Normal 27.0-33.0 [facility] ([place]) Comment on above: Performed By: #### A DERECK, BMP, CBC, GFR, ADIFF #### [address] [address] MCHC (RBC) [Mass/Vol] 33.5 G/dL Normal 32.0-36.0 [facility] ([place]) Comment on above: Performed By: #### A DERECK, BMP, CBC, GFR, ADIFF #### [place] [id number] MCV (RBC) [Entitic vol] 90.7 fL Normal 81.0-100.0 [facility] ([place]) Comment on above: Performed By: #### A DERECK, BMP, CBC, GFR, ADIFF #### [place] [id number] Platelet mean volume (Bld) [Entitic vol] 11.0 fL High 6.4-10.5 [facility] ([place]) Comment on above: Performed By: #### A DERECK, BMP, CBC, GFR, ADIFF #### [place] [phone] Platelets (Bld) [#/Vol] 167 10 3/mcL Normal 150-450 [facility] ([place]) Comment on above: Performed By: #### A DERECK, BMP, CBC, GFR, ADIFF #### [address] [address] RBC (Bld) [#/Vol] 4.92 10 6/mcL Normal 4.50-6.00 [facility] ([place] Comment on above: Performed By: #### A DERECK, BMP, CBC, GFR, ADIFF #### [place] [id number] WBC (Bld) [#/Vol] 7.30 10 3/mcL Normal 4.50-10.80 [facility] ([place] Comment on above: Performed By: #### A DERECK, BMP, CBC, GFR, ADIFF #### [address] [address] .Auto Diffon 05-08-2020 Ammonia (P) [Mass/Vol] 0.70 10 3/mcL Normal 0.09-1.40 [facility] ([place]) Comment on above: Performed By: #### A DERECK, GFR, CBC, BMP, ADIFF #### [address] [address] Basophils (Bld) [#/Vol] 0.00 10 3/mcL Normal 0.00-0.27 [facility] ([place]) Comment on above: Performed By: #### A DERECK, GFR, CBC, BMP, ADIFF #### [address] [address] Basophils/100 WBC (Bld) 0.4 % Normal 0.0-2.5 A [facility] ([place]) Comment on above: Performed By: #### A DERECK, GFR, CBC, BMP, ADIFF #### [address] [address] Eosinophils (Bld) [#/Vol] 0.20 10 3/mcL Normal 0.00-0.65 [facility] ([place]) Comment on above: Performed By: #### A DERECK, GFR, CBC, BMP, ADIFF #### [address] [address] Eosinophils/100 WBC (Bld) 1.9 % Normal 0.0-6.0 [facility] ([place]) Comment on above: Performed By: #### A DERECK, GFR, CBC, BMP, ADIFF #### [address] [address] Lymphocytes (Bld) [#/Vol] 1.60 10 3/mcL Normal 0.90-4.32 [facility] ([place]) Comment on above: Performed By: #### A DERECK, GFR, CBC, BMP, ADIFF #### [address] [address] Lymphocytes/100 WBC (Bld) 14.0 % Low 20.0-40.0 [facility] ([place]) Comment on above: Performed By: #### A DERECK, GFR, CBC, BMP, ADIFF #### [address] [address] Monocytes/100 WBC (Bld) 6.0 % Normal 2.0-13.0 A [facility] ([place]) Comment on above: Performed By: #### A DERECK, GFR, CBC, BMP, ADIFF #### [address] [address] Neutrophils/100 WBC (Bld) 77.7 % High 50.0-75.0 [facility] ([place]) Comment on above: Performed By: #### A DERECK, GFR, CBC, BMP, ADIFF #### [address] [address] .GFRon 05-08-2020 GFR Non- >60 Normal [facility] ([place]) Comment on above: Result Comment: GFR Population mean for , Non- Americans Ages 20-29 = 116 mL/min/1.73 sq.m. Ages 30-39 = 107 mL/min/1.73 sq.m. Ages 40-49 = 99 mL/min/1.73 sq.m. Ages 50-59 = 93 mL/min/1.73 sq.m. Ages 60-69 = 85 mL/min/1.73 sq.m. Ages 70+ = 75 mL/min/1.73 sq.m. Chronic Kidney Disease: Less than 60 mL/min/1.73 square meters End Stage Renal Disease: Less than 15 mL/min/1.73 square meters Performed By: #### A DERECK, GFR, CBC, BMP, ADIFF #### [address] [address] GFR >60 Normal [facility] ([place]) Comment on above: Result Comment: GFR Population mean for , Non- Americans Ages 20-29 = 116 mL/min/1.73 sq.m. Ages 30-39 = 107 mL/min/1.73 sq.m. Ages 40-49 = 99 mL/min/1.73 sq.m. Ages 50-59 = 93 mL/min/1.73 sq.m. Ages 60-69 = 85 mL/min/1.73 sq.m. Ages 70+ = 75 mL/min/1.73 sq.m. Chronic Kidney Disease: Less than 60 mL/min/1.73 square meters End Stage Renal Disease: Less than 15 mL/min/1.73 square meters Performed By: #### A DERECK, GFR, CBC, BMP, ADIFF #### [address] [address] .NEUABSon 05-08-2020 Neutrophils (Bld) [#/Vol] 8.60 10 3/mcL High 2.25-8.10 [facility] ([place]) Comment on above: Performed By: #### A DERECK, GFR, CBC, BMP, ADIFF #### [address] [address] BMPon 05-08-2020 Calcium [Mass/Vol] 9.3 mg/dL Normal 8.7-10.4 [facility] ([place]) Comment on above: Result Comment: No te - New Reference Range in effect 19 Performed By: #### A DERECK, GFR, CBC, BMP, ADIFF #### [place] [id number] Chloride [Moles/Vol] 104 mmol/L Normal 98-110 [facility] ([place]) Comment on above: Performed By: #### A DERECK, GFR, CBC, BMP, ADIFF #### [address] [address] CO2 [Moles/Vol] 27 mmol/L Normal 22-32 [facility] ([place]) Comment on above: Performed By: #### A DERECK, GFR, CBC, BMP, ADIFF #### [place] [address] Creatinine [Mass/Vol] 0.77 mg/dL Normal 0.60-1.40 [facility] ([place]) Comment on above: Performed By: #### A DERECK, GFR, CBC, BMP, ADIFF #### [place] [id number] Electrolyte Balance 8.0 mEq/L Normal 4.0-15.0 [facility] ([place]) Comment on above: Performed By: #### A DERECK, GFR, CBC, BMP, ADIFF #### [place] [id number] Glucose [Mass/Vol] 89 mg/dL Normal 82-115 [facility] ([place]) Comment on above: Performed By: #### A DERECK, GFR, CBC, BMP, ADIFF #### [place] [id number] Potassium [Moles/Vol] 4.7 mmol/L Normal 3.5-5.0 [facility] ([place]) Comment on above: Performed By: #### A DERECK, GFR, CBC, BMP, ADIFF #### [place] [id number] Sodium [Moles/Vol] 139 mmol/L Normal 136-145 [facility] ([place] Comment on above: Performed By: #### A DERECK, GFR, CBC, BMP, ADIFF #### [place] [id number] Urea nitrogen [Mass/Vol] 13.0 mg/dL Normal 8.0-22.0 [facility] ([place]) Comment on above: Performed By: #### A DERECK, GFR, CBC, BMP, ADIFF #### [place] [id number] Urea nitrogen/Creatinine [Mass ratio] 16.9 ratio Normal 10.0-22.0 [facility] ([place]) Comment on above: Performed By: #### A DERECK, GFR, CBC, BMP, ADIFF #### [address] [address] CBCon 05-08-2020 Erythrocyte distribution width (RBC) [Ratio] 13.1 % Normal 11.5-15.5 [facility] ([place]) Comment on above: Performed By: #### A DERECK, GFR, CBC, BMP, ADIFF #### [place] [id number] Hematocrit (Bld) [Volume fraction] 43.0 % Normal 40.0-52.0 [facility] ([place]) Comment on above: Performed By: #### A DERECK, GFR, CBC, BMP, ADIFF #### [place] [id number] Hemoglobin (Bld) [Mass/Vol] 14.2 G/dL Normal 13.0-17.5 [facility] ([place]) Comment on above: Performed By: #### A DERECK, GFR, CBC, BMP, ADIFF #### [address] [address] MCH (RBC) [Entitic mass] 29.9 pg Normal 27.0-33.0 [facility] ([place]) Comment on above: Performed By: #### A DERECK, GFR, CBC, BMP, ADIFF #### [address] [address] MCHC (RBC) [Mass/Vol] 33.2 G/dL Normal 32.0-36.0 [facility] ([place]) Comment on above: Performed By: #### A DERECK, GFR, CBC, BMP, ADIFF #### [place] [id number] MCV (RBC) [Entitic vol] 90.1 fL Normal 81.0-100.0 [facility] ([place]) Comment on above: Performed By: #### A DERECK, GFR, CBC, BMP, ADIFF #### [address] [address] Platelet mean volume (Bld) [Entitic vol] 11.4 fL High 6.4-10.5 [facility] ([place]) Comment on above: Performed By: #### A DERECK, GFR, CBC, BMP, ADIFF #### [address] [address] Platelets (Bld) [#/Vol] 156 10 3/mcL Normal 150-450 [facility] ([place]) Comment on above: Performed By: #### A DERECK, GFR, CBC, BMP, ADIFF #### [address] [address] RBC (Bld) [#/Vol] 4.77 10 6/mcL Normal 4.50-6.00 [facility] ([place]) Comment on above: Performed By: #### A DERECK, GFR, CBC, BMP, ADIFF #### [place] [id number] WBC (Bld) [#/Vol] 11.10 10 3/mcL High 4.50-10.80 [facility] ([place]) Comment on above: Performed By: #### A DERECK, GFR, CBC, BMP, ADIFF #### [address] [address] .Auto Diffon 05-04-2020 Ammonia (P) [Mass/Vol] 1.00 10 3/mcL Normal 0.09-1.40 [facility] ([place]) Comment on above: Performed By: #### A DERECK, BMP, CBC, GFR, ADIFF #### [address] [address] Basophils (Bld) [#/Vol] 0.00 10 3/mcL Normal 0.00-0.27 [facility] ([place]) Comment on above: Performed By: #### A DERECK, BMP, CBC, GFR, ADIFF #### [address] [address] Basophils/100 WBC (Bld) 0.3 % Normal 0.0-2.5 A [facility] ([place]) Comment on above: Performed By: #### A DERECK, BMP, CBC, GFR, ADIFF #### [address] [address] Eosinophils (Bld) [#/Vol] 0.20 10 3/mcL Normal 0.00-0.65 [facility] ([place]) Comment on above: Performed By: #### A DERECK, BMP, CBC, GFR, ADIFF #### [address] [address] Eosinophils/100 WBC (Bld) 1.5 % Normal 0.0-6.0 [facility] ([place]) Comment on above: Performed By: #### A DERECK, BMP, CBC, GFR, ADIFF #### [address] [address] Lymphocytes (Bld) [#/Vol] 1.60 10 3/mcL Normal 0.90-4.32 [facility] ([place]) Comment on above: Performed By: #### A DERECK, BMP, CBC, GFR, ADIFF #### [address] [address] Lymphocytes/100 WBC (Bld) 13.1 % Low 20.0-40.0 [facility] ([place]) Comment on above: Performed By: #### A DERECK, BMP, CBC, GFR, ADIFF #### [address] [address] Monocytes/100 WBC (Bld) 8.4 % Normal 2.0-13.0 A [facility] ([place]) Comment on above: Performed By: #### A DERECK, BMP, CBC, GFR, ADIFF #### [address] [address] Neutrophils/100 WBC (Bld) 76.7 % High 50.0-75.0 [facility] ([place]) Comment on above: Performed By: #### A DERECK, BMP, CBC, GFR, ADIFF #### [address] [address] .GFRon 05-04-2020 GFR >60 Normal [facility] ([place]) Comment on above: Result Comment: GFR Population mean for , Non- Americans Ages 20-29 = 116 mL/min/1.73 sq.m. Ages 30-39 = 107 mL/min/1.73 sq.m. Ages 40-49 = 99 mL/min/1.73 sq.m. Ages 50-59 = 93 mL/min/1.73 sq.m. Ages 60-69 = 85 mL/min/1.73 sq.m. Ages 70+ = 75 mL/min/1.73 sq.m. Chronic Kidney Disease: Less than 60 mL/min/1.73 square meters End Stage Renal Disease: Less than 15 mL/min/1.73 square meters Performed By: #### A DERECK, BMP, CBC, GFR, ADIFF #### [address] [address] GFR Non- >60 Normal [facility] ([place]) Comment on above: Result Comment: GFR Population mean for , Non- Americans Ages 20-29 = 116 mL/min/1.73 sq.m. Ages 30-39 = 107 mL/min/1.73 sq.m. Ages 40-49 = 99 mL/min/1.73 sq.m. Ages 50-59 = 93 mL/min/1.73 sq.m. Ages 60-69 = 85 mL/min/1.73 sq.m. Ages 70+ = 75 mL/min/1.73 sq.m. Chronic Kidney Disease: Less than 60 mL/min/1.73 square meters End Stage Renal Disease: Less than 15 mL/min/1.73 square meters Performed By: #### A DERECK, BMP, CBC, GFR, ADIFF #### [place] [address] .NEUABSon 05-04-2020 Neutrophils (Bld) [#/Vol] 9.10 10 3/mcL High 2.25-8.10 [facility] ([place]) Comment on above: Performed By: #### A DERECK, BMP, CBC, GFR, ADIFF #### [place] [address] CBCon 05-04-2020 Erythrocyte distribution width (RBC) [Ratio] 13.4 % Normal 11.5-15.5 [facility] ([place]) Comment on above: Performed By: #### A DERECK, BMP, CBC, GFR, ADIFF #### [place] [address] Hematocrit (Bld) [Volume fraction] 47.0 % Normal 40.0-52.0 [facility] ([place]) Comment on above: Performed By: #### A DERECK, BMP, CBC, GFR, ADIFF #### [place] [address] Hemoglobin (Bld) [Mass/Vol] 16.1 G/dL Normal 13.0-17.5 [facility] ([place]) Comment on above: Performed By: #### A DERECK, BMP, CBC, GFR, ADIFF #### [place] [address] MCH (RBC) [Entitic mass] 30.6 pg Normal 27.0-33.0 [facility] ([place]) Comment on above: Performed By: #### A DERECK, BMP, CBC, GFR, ADIFF #### [address] [address] MCHC (RBC) [Mass/Vol] 34.4 G/dL Normal 32.0-36.0 [facility] ([place]) Comment on above: Performed By: #### A DERECK, BMP, CBC, GFR, ADIFF #### [address] [address] MCV (RBC) [Entitic vol] 88.8 fL Normal 81.0-100.0 [facility] ([place]) Comment on above: Performed By: #### A DERECK, BMP, CBC, GFR, ADIFF #### [address] [address] Platelet mean volume (Bld) [Entitic vol] 11.6 fL High 6.4-10.5 [facility] ([place]) Comment on above: Performed By: #### A DERECK, BMP, CBC, GFR, ADIFF #### [place] [id number] Platelets (Bld) [#/Vol] 147 10 3/mcL Low 150-450 [facility] ([place]) Comment on above: Performed By: #### A DERECK, BMP, CBC, GFR, ADIFF #### [place] [id number] RBC (Bld) [#/Vol] 5.29 10 6/mcL Normal 4.50-6.00 [facility] ([place]) Comment on above: Performed By: #### A DERECK, BMP, CBC, GFR, ADIFF #### [place] [id number] WBC (Bld) [#/Vol] 11.90 10 3/mcL High 4.50-10.80 [facility] ([place]) Comment on above: Performed By: #### A DERECK, BMP, CBC, GFR, ADIFF #### [address] [address] CMPon 05-04-2020 Albumin [Mass/Vol] 3.2 G/dL Normal 3.2-4.8 [facility] ([place]) Comment on above: Performed By: #### A DERECK, BMP, CBC, GFR, ADIFF #### [address] [address] Albumin/Globulin [Mass ratio] 1.0 {ratio} Normal 0.9-1.6 [facility] ([place]) Comment on above: Performed By: #### A DERECK, BMP, CBC, GFR, ADIFF #### [address] [address] ALP [Catalytic activity/Vol] 126 U/L Normal 38-126 [facility] ([place]) Comment on above: Performed By: #### A DERECK, BMP, CBC, GFR, ADIFF #### [place] [id number] ALT [Catalytic activity/Vol] 73 U/L High 12-55 [facility] ([place]) Comment on above: Performed By: #### A DERECK, BMP, CBC, GFR, ADIFF #### [place] [id number] AST [Catalytic activity/Vol] 42 U/L High 8-34 [facility] ([place]) Comment on above: Performed By: #### A DERECK, BMP, CBC, GFR, ADIFF #### [place] [id number] Bili Total 0.60 mg/dL Normal 0.20-1.20 [facility] ([place]) Comment on above: Result Comment: Use of this assay is not recommended for patients undergoing treatment with eltrombopag due to the potential for falsely elevated results. Performed By: #### A DERECK, BMP, CBC, GFR, ADIFF #### [place] [id number] Calcium [Mass/Vol] 9.6 mg/dL Normal 8.7-10.4 [facility] ([place]) Comment on above: Result Comment: No te - New Reference Range in effect 19 Performed By: #### A DERECK, BMP, CBC, GFR, ADIFF #### [place] [id number] Chloride [Moles/Vol] 107 mmol/L Normal 98-110 [facility] ([place]) Comment on above: Performed By: #### A DERECK, BMP, CBC, GFR, ADIFF #### [address] [address] CO2 [Moles/Vol] 23 mmol/L Normal 22-32 [facility] ([place]) Comment on above: Performed By: #### A DERECK, BMP, CBC, GFR, ADIFF #### [address] [address] Creatinine [Mass/Vol] 0.70 mg/dL Normal 0.60-1.40 [facility] ([place]) Comment on above: Performed By: #### A DERECK, BMP, CBC, GFR, ADIFF #### [address] [address] Electrolyte Balance 8.0 mEq/L Normal 4.0-15.0 [facility] [facility] [place] ([place]) Comment on above: Performed By: #### A DERECK, BMP, CBC, GFR, ADIFF #### [place] [id number] Globulin (S) [Mass/Vol] 3.3 G/dL Normal 1.5-3.8 [facility] ([place]) Comment on above: Performed By: #### A DERECK, BMP, CBC, GFR, ADIFF #### [address] [address] Glucose [Mass/Vol] 98 mg/dL Normal 82-115 [facility] ([place]) Comment on above: Performed By: #### A DERECK, BMP, CBC, GFR, ADIFF #### [address] [address] Potassium [Moles/Vol] 4.2 mmol/L Normal 3.5-5.0 [facility] ([place]) Comment on above: Performed By: #### A DERECK, BMP, CBC, GFR, ADIFF #### [address] [address] Protein [Mass/Vol] 6.5 G/dL Normal 5.7-8.2 [facility] ([place]) Comment on above: Result Comment: No te - New Reference Range in effect 20 Performed By: #### A DERECK, BMP, CBC, GFR, ADIFF #### [facility] [address] [place] [id number] Sodium [Moles/Vol] 138 mmol/L Normal 136-145 [facility] ([place]) Comment on above: Performed By: #### A DERECK, BMP, CBC, GFR, ADIFF #### [address] [address] Urea nitrogen [Mass/Vol] 14.0 mg/dL Normal 8.0-22.0 [facility] ([place]) Comment on above: Performed By: #### A DERECK, BMP, CBC, GFR, ADIFF #### [facility] [address] [place] [address] Urea nitrogen/Creatinine [Mass ratio] 20.0 ratio Normal 10.0-22.0 [facility] ([place]) Comment on above: Performed By: #### A DERECK, BMP, CBC, GFR, ADIFF #### [address] [address] Encounters Encounter Date Encounter Type Care Provider Facility Start: 01-31-2025 ambulatory [facility] Facility: [facility] Start: 02-04-2024 End: 02-04-2024 [facility] Facility:[facility] Start: 01-28-2024 End: 01-28-2024 [facility] Facility:[facility] Start: 01-29-2023 End: 01-29-[address] [facility] Work Phone: Start: 01-29-2023 End: 01-29-2023 Patient encounter procedure [facility] Work Phone: Start: 07-10-2022 End: 07-10-[address] [facility] Work Phone: Start: 07-10-2022 End: 07-10-2022 Patient encounter procedure [facility] [place] Start: 12-02-2021 End: 12-02-2021 Patient encounter procedure [facility] Plan of Treatment Date Care Activity Detail Author Antibody to lupus La protein measurement [facility] Antibody to SS-A measurement [facility] Centromere protein B Ab [Units/volume] in Serum [facility] Chromatin Ab [Units/volume] in Serum or P lasma [facility] DNA double strand Ab [Units/volume] in Se rum [facility] Angela-1 extractable nuc lear Ab [Units/volume] in Serum [facility] SCL-70 extractable n uclear Ab [Units/volume] in Serum by Immunoassay [facility] [place] extractable nu clear Ab [Presence] in Serum [facility] Payers Date Payer Category Payer Self-pay [id number] 2023 Unknown [id number] Unknown [id number] Unknown UHC/[address]/[place] [employer] [id number] Unknown AARP MCR ADV [id number] Unknown [id number] Unknown [id number] Social History Date Type Detail Facility Start: 01-20-2021 Tobacco smoking stat us PRIS Unknown if ever smoked [facility] Start: 1960 Sex Assigned At Male [facility] Evaluation note Note Date & Type Note Facility Evaluation note No assessment information availa ble [facility] Work Phone: Summary Purpose Family History No Family History Records Found Relationship Condition Age at Onset Recorded Date/T bakari sister Hypercholesterolemia Unknown father Cerebrovascular accident (CVA) Unknown Hypercholesterolemia Unknown Advance Directives No Advanced Directives Records Found Advance Directive Response Recorded Date/ Time Living Will No January 16, 2021 12:20pm Power of Cardiology Specialist No December 12:20pm Additional Source Comments (unrecognized sect ion and content) No Status Records FoundNo Status Records Found INFORMATION SOURCE (unrecogn ized section and content) DATE CREATED AUTHOR 07/16/2020 [facility] ([place]) DATE CREATED AUTHOR AUTHOR'S ORGANIZ ATION 08/14/2024 [facility] Goals (unrecognized section and content) Goals may be documented in a n alternate sectionGoals may be documented in an alternate sectionGoals may be documented in an alternate section Care Teams (unrecognized sec tion and content) Team Status: Active Member Role Status Dates Dr. Aaron Mehta MD Family Provider Active Dr. Vinnie Nash DO Primary Care Provider Active Team Status: Inactive Member Role Status Dates Dr. Vinnie Nash DO Primary Care Provider, Attendin g Provider Active Team Status: Inactive Member Role Status Dates Dr. Vinnie Nash DO Primary Care Prov ider, Attending Provider, Referring Provider Active FOR RECORDS PERTAINING TO PATIENTS WHO ARE OR HAVE BEEN ENROLLED IN A CHEMICAL DEPENDENCY/SUBSTANCEABUSE PROGRAM, SOME INFORMATION MAY BE OMITTED. This clinical summary was aggregated from multiple sources. Caution should be exercised in using it in the provision of clinical care. This summary normalizes information from multiple sources, and as a consequence, information in this document may materially change the coding, format and clinical context of patient data. In addition, data may be omitted in some cases. CLINICAL DECISIONS SHOULD BE BASED ON THE PRIMARY CLINICAL RECORDS. [email or web address] [facility]. provides no warranty or guarantee of the accuracy or completeness of information in this document.
--- OUTSIDE RECORDS SUMMARY | 2025-02-02 07:20 | XMS RPT_ITS | CCD ---
Author Organization [facility] Care Team Providers Care Computer Publisher Name Role Phone Vinnie Nash Primary Care Unavailable Vinnie Nash Attending Unavailable Vinnie Nash Referring Unavailable Vinnie Nash Attending Unavailable Vinnie Nash Primary Care Unavailable Vinnie Nash Primary Care Unavailable Vinnie Nash Attending Unavailable Allergies Allergy Classification Reported Allergen(s) Allergy Type Date of Onset Reaction(s) Facility (4 sources) Penicillins; Translations: [Penicillins] Allergy to substance 01-20-2021 [facility] Medications Current Medications Medication Drug Class(es) Dates [...] 02-04-2024 PSA,TOT SCREEN 0.63 ng/mL Normal 0.00-4.00 [facility] Comment on above: Order Comment: DRAWN 02/03. Result Comment: This test was performed using the TPSA assay method for the [employer] chemistry system. Values obtained with different assay methods cannot be used interchangably. When changing PSA assays in the course of monitoring a patient, additional sequential testing should be carried out to confirm baseline values. Performed By: #### L 501.9910 #### [facility] [address] [place], [address] CBC W/Diff, Automatedon 01-17 Absolute Lymph 2.56 X10 3/uL Normal 0.83-4.51 [facility] Comment on above: Performed By: #### L 500.4100, L100.0100, L500.4050 #### [facility] [address] [place], [address] Absolute Neut 4.9 X10 3/uL Normal 2.0-7.7 [facility] Comment on above: Performed By: #### L 500.4100, L100.0100, [id number] #### [facility] [address] [place], [address] Basophils/100 WBC (Bld) 0.8 % Normal 0-1 [facility] Comment on above: Performed By: #### L 500.4100, L100.0100, [id number] #### [facility] [address] [place], [address] Eosinophils/100 WBC (Bld) 2.8 % Normal 0-5 [facility] Comment on above: Performed By: #### L 500.4100, L100.0100, [id number] #### [facility] [address] [place], [address] Erythrocyte distribution width (RBC) [Ratio] 13.9 % Normal 11.6-14.6 [facility] Comment on above: Performed By: #### L 500.4100, L100.0100, [id number] #### [facility] [address] [place], [address] Hematocrit (Bld) [Volume fraction] 50.6 % Normal 40-54 [facility] Comment on above: Performed By: #### L 500.4100, L100.0100, [id number] #### [facility] [address] [place], [address] Hemoglobin (Bld) [Mass/Vol] 16.4 g/dL Normal 13.0-16.5 [facility] Comment on above: Performed By: #### L 500.4100, L100.0100, L500.4050 #### [facility] [address] [place], [address] IG% 0.400 Normal 0.0-0.9 [facility] Comment on above: Result Comment: IG% - Immature Granulocytes (promyelocytes, myelocytes and metamyelocytes) > 1% indicates that a LEFT SHIFT is Present. Performed By: #### L 500.4100, L100.0100, L500.4050 #### [facility] [address] [place], [address] Lymphocytes/100 WBC (Bld) 30.8 % Normal 19-41 [facility] Comment on above: Performed By: #### L 500.4100, L100.0100, [id number] #### [facility] [address] [place], [address] MCH (RBC) [Entitic mass] 30.3 pg Normal 27.0-32.0 [facility] Comment on above: Performed By: #### L 500.4100, L100.0100, [id number] #### [facility] [address] [place], [address] MCHC (RBC) [Mass/Vol] 32.4 g/dL Normal 32-36 [facility] Comment on above: Performed By: #### L 500.4100, L100.0100, [id number] #### [facility] [address] [place], [address] MCV (RBC) [Entitic vol] 93.5 fL Normal 80-94 [facility] Comment on above: Performed By: #### L 500.4100, L100.0100, [id number] #### [facility] [address] [place], [address] Monocytes/100 WBC (Bld) 6.6 % Normal 0-10 [facility] Comment on above: Performed By: #### L 500.4100, L100.0100, [id number] #### [facility] [address] [place], [address] Neutrophils/100 WBC (Bld) 58.6 % Normal 47-70 [facility] Comment on above: Performed By: #### L 500.4100, L100.0100, [id number] #### [facility] [address] [place], [address] Nucleated RBC (Bld) [#/Vol] 0 10*3/uL Normal 0-5 [facility] Comment on above: Performed By: #### L 500.4100, L100.0100, [id number] #### [facility] [address] [place], [address] Platelet mean volume (Bld) [Entitic vol] 13.2 fL High 6.2-12.0 [facility] Comment on above: Performed By: #### L 500.4100, L100.0100, [id number] #### [facility] [address] [place], [address] Platelets (Bld) [#/Vol] 208 10*3/uL Normal 150-450 [facility] Comment on above: Performed By: #### L 500.4100, L100.0100, [id number] #### [facility] [address] [place], [address] RBC (Bld) [#/Vol] 5.41 10*6/uL Normal 4.6-6.2 [facility] Comment on above: Performed By: #### L 500.4100, L100.0100, L500.4050 #### [facility] [address] [place], [address] RDW SD 48.0 fl High 35.1-43.9 [facility] Comment on above: Performed By: #### L 500.4100, L100.0100, [id number] #### [facility] [address] [place], [address] WBC (Bld) [#/Vol] 8.3 10*3/uL Normal 4.4-11.0 [facility] Comment on above: Performed By: #### L 500.4100, L100.0100, [id number] #### [facility] [address] [place], [address] Comprehensive Metabolic Prof [facility] 01-28-2024 Albumin [Mass/Vol] 4.1 g/dL Normal 3.2-5.0 [facility] Comment on above: Performed By: #### L 500.4100, L100.0100, [id number] #### [facility] [address] [place], [address] Albumin/Globulin [Mass ratio] 1.3 {ratio} Normal 0.9-2.4 [facility] Comment on above: Performed By: #### L 500.4100, L100.0100, [id number] #### [facility] [address] [place], [address] ALK P 82 U/L Normal 45-117 [facility] Comment on above: Performed By: #### L 500.4100, L100.0100, [id number] #### [facility] [address] [place], [address] ALT [Catalytic activity/Vol] 28 U/L Normal 16-61 [facility] Comment on above: Performed By: #### L 500.4100, L100.0100, [id number] #### [facility] [address] [place], [address] AST [Catalytic activity/Vol] 15 U/L Normal 15-37 [facility] Comment on above: Performed By: #### L 500.4100, L100.0100, [id number] #### [facility] [address] [place], [address] Bilirubin [Mass/Vol] 0.50 mg/dL Normal 0.20-1.00 [facility] Comment on above: Result Comment: For patients on eltrombopag therapy, use of Dimension Mcclure TBIL is not recommended. Performed By: #### L 500.4100, L100.0100, L500.4050 #### [facility] [address] [place], [address] BUN/CRE 14.9 RATIO Normal 10-20 [facility] Comment on above: Performed By: #### L 500.4100, L100.0100, [id number] #### [facility] [address] [place], [address] CA,Total 9.6 mg/dL Normal 8.5-10.1 [facility] Comment on above: Performed By: #### L 500.4100, L100.0100, [id number] #### [facility] [address] [place], [address] Chloride [Moles/Vol] 106 mmol/L Normal 98-107 [facility] Comment on above: Performed By: #### L 500.4100, L100.0100, [id number] #### [facility] [address] [place], [address] CO2 [Moles/Vol] 30.0 mmol/L Normal 21.0-32.0 [facility] Comment on above: Performed By: #### L 500.4100, L100.0100, [id number] #### [facility] [address] [place], [address] Creatinine [Mass/Vol] 0.81 mg/dL Normal 0.70-1.30 [facility] Comment on above: Result Comment: The validity of the calculated GFR GFRAA in patients over 70 years has not been determined. Clinical correlation is essential. Performed By: #### L 500.4100, L100.0100, L500.4050 #### [facility] [address] [place], [address] EST GFR - AA 124 mL/min Normal >60 [facility] Comment on above: Result Comment: Afri can [place] GFR Calc Performed By: #### L 500.4100, L100.0100, L500.4050 #### [facility] [address] [place], [address] GAP 5 Normal 5-15 [facility] Comment on above: Performed By: #### L 500.4100, L100.0100, [id number] #### [facility] [address] [place], [address] GFR/1.73 sq M.predicted among non-blacks MDRD (S/P/Bld) [Vol rate/Area] 102 mL/min/{1.73_m2} Normal >60 [facility] Comment on above: Result Comment: Non- GFR Calc Performed By: #### L 500.4100, L100.0100, L500.4050 #### [facility] [address] [place], [address] Globulin (S) [Mass/Vol] 3.2 g/dL Normal 2.2-4.2 [facility] Comment on above: Performed By: #### L 500.4100, L100.0100, [id number] #### [facility] [address] [place], [address] Glucose [Mass/Vol] 97 mg/dL Normal 74-106 [facility] Comment on above: Performed By: #### L 500.4100, L100.0100, [id number] #### [facility] [address] [place], [address] Potassium [Moles/Vol] 4.0 mmol/L Normal 3.5-5.1 [facility] Comment on above: Performed By: #### L 500.4100, L100.0100, [id number] #### [facility] [address] [place], [address] Sodium [Moles/Vol] 141 mmol/L Normal 136-145 [facility] Comment on above: Performed By: #### L 500.4100, L100.0100, [id number] #### [facility] [address] [place], [address] T PROT 7.3 g/dL Normal 6.4-8.2 [facility] Comment on above: Performed By: #### L 500.4100, L100.0100, [id number] #### [facility] [address] [place], [address] Urea nitrogen [Mass/Vol] 12 mg/dL Normal 7-18 [facility] Comment on above: Performed By: #### L 500.4100, L100.0100, [id number] #### [facility] [address] [place], [address] Lipid Profileon 01-28-2024 Cholesterol [Mass/Vol] 142 mg/dL Normal 200 [facility] Comment on above: Result Comment: <200 mg/dL Desirable 200-240 mg/dL Borderline >240 mg/dL High Risk Performed By: #### L 500.4100, L100.0100, L500.4050 #### [facility] [address] [place], [address] Cholesterol in HDL [Mass/Vol] 88 mg/dL Normal [facility] Comment on above: Result Comment: The drugs N-Acetylcysteine and Metamizole may falsely depress this assay. Reference Range HDL <40 mg/dL Low HDL Cholesterol HDL >or= 60 mg/dL High HDL Cholesterol Performed By: #### L 500.4100, L100.0100, L500.4050 #### [facility] [address] [place], [address] Cholesterol in LDL [Mass/Vol] 43 mg/dL Normal 0-130 [facility] Comment on above: Performed By: #### L 500.4100, L100.0100, L500.4050 #### [facility] [address] [place], [address] Cholesterol in VLDL [Mass/Vol] 11 mg/dL Normal 5-40 [facility] Comment on above: Performed By: #### L 500.4100, L100.0100, L500.4050 #### [facility] [address] [place], [address] Triglyceride [Mass/Vol] 55 mg/dL Normal [facility] Comment on above: Result Comment: The drugs N-Acetylcysteine and Metamizole may falsely depress this assay. Serum Triglycerides Reference Interval Normal <150 mg/dL Borderline high 150 - 199 mg/dL High 200 - 499 mg/dL Very High > or = 500 mg/dL Performed By: #### L 500.6050, L100.0100, L500.4050 #### [facility] [address] [place], [address] Absolute lymphocyte countOrd ered By: Vinnie Nash on 01-29-2023 Lymphocytes Auto (Unsp spec) [#/Vol] 2.39 10*3/uL 0.83-4.51 [facility] Basophil percentageOrdered B y: Vinnie Nash on 01-29-2023 Basophils/100 WBC (Bld) 0.8 % 0-1 [facility] Bilirubin [Mass/Vol] 0.50 mg/dL 0.20-1.00 [facility] Comment on above: For patients on eltr ombopag therapy, use of Dimension Mcclure TBIL is not recommended. Chloride [Moles/Vol] 111 mmol/L 98-107 [facility] Cholesterol [Mass/Vol] 123 mg/dL <200 [facility] Comment on above: <200 mg/dL Desirable 200-240 mg/dL Borderline >240 mg/dL High Risk Eosinophils/100 WBC (Bld) 2.9 % 0-5 [facility] Glucose [Mass/Vol] 97 mg/dL 74-106 [facility] Neutrophils (Bld) [#/Vol] 5.0 10*3/uL 2.0-7.7 [facility] Neutrophils/100 WBC (Bld) 60.0 % 47-70 [facility] Potassium [Moles/Vol] 4.3 mmol/L 3.5-5.1 [facility] Protein [Mass/Vol] 6.9 g/dL 6.4-8.2 [facility] Sodium [Moles/Vol] 144 mmol/L 136-145 [facility] Triglyceride [Mass/Vol] 71 mg/dL <199 [facility] Comment on above: The drugs N-Acetylcy steine and Metamizole may falsely depress this assay.Serum Triglycerides Reference Interval Normal <150 mg/dL Borderline high 150 - 199 mg/dL High 200 - 499 mg/dL Very High > or = 500 mg/dL WBC (Bld) [#/Vol] 8.4 10*3/uL 4.4-11.0 [facility] Blood erythrocytes count (nu mber/volume)Ordered By: Vinnie Nash on 01-29-2023 RBC (Bld) [#/Vol] 5.33 10*6/uL 4.6-6.2 [facility] Blood hemoglobin measurement (mass/volume)Ordered By: Vinnie Nash on 01-29-2023 Hemoglobin (Bld) [Mass/Vol] 16.2 g/dL 13.0-16.5 [facility] Blood lymphocytes/100 leukoc ytesOrdered By: Vinnie Nash on 01-29-2023 Lymphocytes/100 WBC (Bld) 28.6 % 19-41 [facility] Blood monocytes/100 leukocyt esOrdered By: Vinnie Nash on 01-29-2023 Monocytes/100 WBC (Bld) 7.3 % 0-10 [facility] Blood platelet mean volumeOr dered By: Vinnie Nash on 01-29-2023 Platelet mean volume (Bld) [Entitic vol] 12.9 fL 6.2-12.0 [facility] Determination of erythrocyte mean corpuscular volume (MCV)Ordered By: Vinnie Nash on 01-29-2023 MCV (RBC) [Entitic vol] 94.0 fL 80-94 [facility] Hematocrit Auto (Bld) [Volum e fraction]Ordered By: Vinnie Nash on 01-29-2023 Hematocrit (Bld) [Volume fraction] 50.1 % 40-54 [facility] - Chemistry and C hemistry - challengeOrdered By: Vinnie Nash on 01-29-2023 ALP [Catalytic activity/Vol] 68 U/L 45-117 [facility] ALT [Catalytic activity/Vol] 29 U/L 16-61 [facility] CO2 [Moles/Vol] 26.0 mmol/L 21.0-32.0 [facility] Globulin (S) [Mass/Vol] 3.2 g/dL 2.2-4.2 [facility] Urea nitrogen/Creatinine [Mass ratio] 19.1 mg/mg 10-20 [facility] - Hematology and Cell countsOrdered By: Vinnie Nash on 01-29-2023 Erythrocyte distribution width (RBC) [Entitic vol] 49.0 fL 35.1-43.9 [facility] Erythrocyte distribution width (RBC) [Ratio] 14.1 % 11.6-14.6 [facility] Immature granulocytes/100 WBC (Bld) 0.400 % 0.0-0.9 [facility] Comment on above: IG% - Immature Granu locytes (promyelocytes, myelocytes and metamyelocytes) > 1% indicates that a LEFT SHIFT is Present. MCH (RBC) [Entitic mass] 30.4 pg 27.0-32.0 [facility] Nucleated RBC/100 WBC (Bld) [Ratio] 0 % 0-5 [facility] MCHC Auto (RBC) [Mass/Vol]Or dered By: Vinnie Nash on 01-29-2023 MCHC (RBC) [Mass/Vol] 32.3 g/dL 32-36 [facility] No Panel InformationOrdered By: Vinnie Nash on 01-29-2023 Estimated GFR (MDRD) Amer 111 mL/min >60 [facility] Comment on above: GFR Calc Estimated GFR (MDRD) Non-Af Amer 91 mL/min >60 [facility] Comment on above: Non- GFR Calc Prostate Specific Antigen Screen 1.01 ng/mL 0.00-4.00 [facility] Comment on above: This test was perfor med using the TPSA assay method [facility]. Values obtained with differentassay methods cannot be used interchangably.When changing PSA assays in the course of monitoring apatient, additional sequential testing should be carriedout to confirm baseline values. Platelets bldOrdered By: Marilyn Nash on 01-29-2023 Platelets (Bld) [#/Vol] 212 10*3/uL 150-450 [facility] Serum or plasma albumin nicanor urement (mass/volume)Ordered By: Vinnie Nash on 01-29-2023 Albumin [Mass/Vol] 3.7 g/dL 3.2-5.0 [facility] Serum or plasma albumin/glob ulin mass ratioOrdered By: Vinnie Nash on 01-29-2023 Albumin/Globulin [Mass ratio] 1.2 {ratio} 0.9-2.4 [facility] Serum or plasma calcium nicanor urement (mass/volume)Ordered By: Vinnie Nash on 01-29-2023 Calcium [Mass/Vol] 8.9 mg/dL 8.5-10.1 [facility] Serum or plasma cholesterol in HDL measurement (mass/volume)Ordered By: Vinnie Nash on 01-29-2023 Cholesterol in HDL [Mass/Vol] 78 mg/dL >40 [facility] Comment on above: The drugs N-Acetylcy steine and Metamizole may falsely depress this assay. Reference Range HDL <40 mg/dL Low HDL Cholesterol HDL >or= 60 mg/dL High HDL Cholesterol Serum or plasma cholesterol in VLDL measurement (mass/volume)Ordered By: Vinnie Nash on 01-29-2023 Cholesterol in VLDL [Mass/Vol] 14 mg/dL 5-40 [facility] Serum or plasma creatinine m easurement (mass/volume)Ordered By: Vinnie Nash on 01-29-2023 Creatinine [Mass/Vol] 0.89 mg/dL 0.70-1.30 [facility] Comment on above: The validity of the calculated GFR & GFRAA in patients over 70 years has not been determined. Clinical correlation is essential. Serum or plasma low density lipoprotein (LDL) cholesterol measurement (mass/volume)Ordered By: Vinnie Nash on 01-29-2023 Cholesterol in LDL [Mass/Vol] 31 mg/dL 0-130 [facility] Serum or plasma urea nitroge n measurement (mass/volume)Ordered By: Vinnie Nash on 01-29-2023 Urea nitrogen [Mass/Vol] 17 mg/dL 7-18 [facility] Thin prep Papanicolaou smear with manual screeningOrdered By: Vinnie Nash on 01-29-2023 Thin prep Papanicolaou smear with manual screening 14 U/L 15-37 [facility] Thin prep Papanicolaou smear with manual screening 7 5-15 [facility] Erythrocyte sedimentation ra teOrdered By: Dr. Nash on 07-10-2022 ESR (Bld) [Velocity] 10 mm/h 0-20 [facility] - Chemistry and C hemistry - challengeOrdered By: Dr. Nash on 07-10-2022 CK [Catalytic activity/Vol] 80 U/L 39-308 [facility] No Panel InformationOrdered By: Dr. Nash on 07-10-2022 Anti-Nuclear Antibody Screen Negative Negative [facility] Comment on above: Performed at: [facility] [place] [id number] [place], [place] [id number] Director: Ozzy Patel PhD, Phone: [phone] Serum or plasma C reactive p rotein measurement (mass/volume)Ordered By: Dr. Nash on 07-10-2022 CRP [Mass/Vol] mg/L 0.0-3.0 [facility] Comment on above: C-Reactive Protein ( CRP) provides useful information for thediagnosis, therapy and monitoring of inflammatory processesand associated diseases. For the evaluation of Relative Riskfor Cardiovascular Disease, a High Sensitivity CRP (HSCRP)should be ordered. Absolute lymphocyte counton 12-02-2021 Lymphocytes Auto (Unsp spec) [#/Vol] 2.35 10*3/uL 0.83-4.51 [facility] Work Phone: Basophil percentageon 2021 Basophils/100 WBC (Bld) 1.0 % 0-1 [facility] Work Phone: Bilirubin [Mass/Vol] 0.70 mg/dL 0.20-1.00 [facility] Work Phone: Comment on above: For patients on eltr ombopag therapy, use of Dimension Mcclure TBIL is not recommended. Chloride [Moles/Vol] 107 mmol/L 98-107 [facility] Work Phone: Cholesterol [Mass/Vol] 136 mg/dL <200 [facility] Work Phone: Comment on above: <200 mg/dL Desirable 200-240 mg/dL Borderline >240 mg/dL High Risk Eosinophils/100 WBC (Bld) 2.5 % 0-5 [facility] Work Phone: Glucose [Mass/Vol] 96 mg/dL 74-106 [facility] Work Phone: Neutrophils (Bld) [#/Vol] 4.6 10*3/uL 2.0-7.7 [facility] Work Phone: Neutrophils/100 WBC (Bld) 59.1 % 47-70 [facility] Work Phone: Potassium [Moles/Vol] 4.1 mmol/L 3.5-5.1 [facility] Work Phone: Protein [Mass/Vol] 7.1 g/dL 6.4-8.2 [facility] Work Phone: Sodium [Moles/Vol] 140 mmol/L 136-145 [facility] Work Phone: Triglyceride [Mass/Vol] 73 mg/dL <199 [facility] Work Phone: Comment on above: The drugs N-Acetylcy steine and Metamizole may falsely depress this assay.Serum Triglycerides Reference Interval Normal <150 mg/dL Borderline high 150 - 199 mg/dL High 200 - 499 mg/dL Very High > or = 500 mg/dL WBC (Bld) [#/Vol] 7.7 10*3/uL 4.4-11.0 [facility] Work Phone: Blood erythrocytes count (nu mber/volume)on 12-02-2021 RBC (Bld) [#/Vol] 5.41 10*6/uL 4.6-6.2 [facility] Work Phone: Blood hemoglobin measurement (mass/volume)on 12-02-2021 Hemoglobin (Bld) [Mass/Vol] 16.8 g/dL 13.0-16.5 [facility] Work Phone: Blood lymphocytes/100 leukoc yteson 12-02-2021 Lymphocytes/100 WBC (Bld) 30.5 % 19-41 [facility] Work Phone: Blood monocytes/100 leukocyt eson 12-02-2021 Monocytes/100 WBC (Bld) 6.6 % 0-10 [facility] Work Phone: Blood platelet mean volumeon 12-02-2021 Platelet mean volume (Bld) [Entitic vol] 12.8 fL 6.2-12.0 [facility] Work Phone: Determination of erythrocyte mean corpuscular volume (MCV)on 12-02-2021 MCV (RBC) [Entitic vol] 92.4 fL 80-94 [facility] Work Phone: Hematocrit Auto (Bld) [Volum e fraction]on 12-02-2021 Hematocrit (Bld) [Volume fraction] 50.0 % 40-54 [facility] Work Phone: Laboratory - Chemistry and C hemistry - challengeon 12-02-2021 ALP [Catalytic activity/Vol] 67 U/L 45-117 [facility] Work Phone: ALT [Catalytic activity/Vol] 29 U/L 16-61 [facility] Work Phone: CO2 [Moles/Vol] 28.0 mmol/L 21.0-32.0 [facility] Work Phone: Globulin (S) [Mass/Vol] 3.1 g/dL 2.2-4.2 [facility] Work Phone: Urea nitrogen/Creatinine [Mass ratio] 24.6 mg/mg 10-20 [facility] Work Phone: Laboratory - Hematology and Cell countson 12-02-2021 Erythrocyte distribution width (RBC) [Entitic vol] 46.1 fL 35.1-43.9 [facility] Work Phone: Erythrocyte distribution width (RBC) [Ratio] 13.4 % 11.6-14.6 [facility] Work Phone: Immature granulocytes/100 WBC (Bld) 0.300 % 0.0-0.9 [facility] Work Phone: Comment on above: IG% - Immature Granu locytes (promyelocytes, myelocytes and metamyelocytes) > 1% indicates that a LEFT SHIFT is Present. MCH (RBC) [Entitic mass] 31.1 pg 27.0-32.0 [facility] Work Phone: Nucleated RBC/100 WBC (Bld) [Ratio] 0 % 0-5 [facility] Work Phone: MCHC Auto (RBC) [Mass/Vol]on 12-02-2021 MCHC (RBC) [Mass/Vol] 33.6 g/dL 32-36 [facility] Work Phone: No Panel Informationon 12-02 Estimated GFR (MDRD) Amer 110 mL/min >60 [facility] Work Phone: Comment on above: GFR Calc Estimated GFR (MDRD) Non-Af Amer 91 mL/min >60 [facility] Work Phone: Comment on above: Non- GFR Calc Prostate Specific Antigen Screen 0.94 ng/mL 0.00-4.00 [facility] Work Phone: Comment on above: This test was perfor med using the TPSA assay method for [employer] chemistry system. Values obtained with differentassay methods cannot be used interchangably.When changing PSA assays in the course of monitoring apatient, additional sequential testing should be carriedout to confirm baseline values. Platelets bldon 12-02-2021 Platelets (Bld) [#/Vol] 216 10*3/uL 150-450 [facility] Work Phone: Serum or plasma albumin nicanor urement (mass/volume)on 12-02-2021 Albumin [Mass/Vol] 4.0 g/dL 3.2-5.0 [facility] Work Phone: Serum or plasma albumin/glob ulin mass ratioon 12-02-2021 Albumin/Globulin [Mass ratio] 1.3 {ratio} 0.9-2.4 [facility] Work Phone: Serum or plasma calcium nicanor urement (mass/volume)on 12-02-2021 Calcium [Mass/Vol] 8.6 mg/dL 8.5-10.1 [facility] Work Phone: Serum or plasma cholesterol in HDL measurement (mass/volume)on 12-02-2021 Cholesterol in HDL [Mass/Vol] 71 mg/dL >40 [facility] Work Phone: Comment on above: The drugs N-Acetylcy steine and Metamizole may falsely depress this assay. Reference Range HDL <40 mg/dL Low HDL Cholesterol HDL >or= 60 mg/dL High HDL Cholesterol Serum or plasma cholesterol in VLDL measurement (mass/volume)on 12-02-2021 Cholesterol in VLDL [Mass/Vol] 15 mg/dL 5-40 [facility] Work Phone: Serum or plasma creatinine m easurement (mass/volume)on 12-02-2021 Creatinine [Mass/Vol] 0.90 mg/dL 0.70-1.30 [facility] Work Phone: Comment on above: The validity of the calculated GFR & GFRAA in patients over 70 years has not been determined. Clinical correlation is essential. Serum or plasma low density lipoprotein (LDL) cholesterol measurement (mass/volume)on 12-02-2021 Cholesterol in LDL [Mass/Vol] 50 mg/dL 0-130 [facility] Work Phone: Serum or plasma urea nitroge n measurement (mass/volume)on 12-02-2021 Urea nitrogen [Mass/Vol] 22 mg/dL 7-18 [facility] Work Phone: Thin prep Papanicolaou smear with manual screeningon 12-02-2021 Thin prep Papanicolaou smear with manual screening 18 U/L 15-37 [facility] Work Phone: Thin prep Papanicolaou smear with manual screening 5 5-15 [facility] Work Phone: .Auto Diffon 05-13-2020 Ammonia (P) [Mass/Vol] 0.40 10 3/mcL Normal 0.09-1.40 [facility] ([place]) Comment on above: Performed By: #### A DERECK, BMP, CBC, GFR, ADIFF #### [facility] [address] [place] [id number] Basophils (Bld) [#/Vol] 0.10 10 3/mcL Normal 0.00-0.27 [facility] ([place]) Comment on above: Performed By: #### A DERECK, BMP, CBC, GFR, ADIFF #### [address] [address] Basophils/100 WBC (Bld) 0.8 % Normal 0.0-2.5 A [facility] ([place]) Comment on above: Performed By: #### A DERECK, BMP, CBC, GFR, ADIFF #### [address] [address] Eosinophils (Bld) [#/Vol] 0.20 10 3/mcL Normal 0.00-0.65 [facility] ([place] Comment on above: Performed By: #### A DERECK, BMP, CBC, GFR, ADIFF #### [address] [address] Eosinophils/100 WBC (Bld) 2.4 % Normal 0.0-6.0 [facility] ([place] Comment on above: Performed By: #### A DERECK, BMP, CBC, GFR, ADIFF #### [address] [address] Lymphocytes (Bld) [#/Vol] 1.20 10 3/mcL Normal 0.90-4.32 [facility] ([place] Comment on above: Performed By: #### A DERECK, BMP, CBC, GFR, ADIFF #### [address] [address] Lymphocytes/100 WBC (Bld) 16.8 % Low 20.0-40.0 [facility] ([place] Comment on above: Performed By: #### A DERECK, BMP, CBC, GFR, ADIFF #### [address] [address] Monocytes/100 WBC (Bld) 6.0 % Normal 2.0-13.0 A [facility] ([place] Comment on above: Performed By: #### A DERECK, BMP, CBC, GFR, ADIFF #### [address] [address] Neutrophils/100 WBC (Bld) 74.0 % Normal 50.0-75.0 [facility] ([place] Comment on above: Performed By: #### A DERECK, BMP, CBC, GFR, ADIFF #### [address] [address] .GFRon 05-13-2020 GFR Non- >60 Normal [facility] ([place] Comment on above: Result Comment: GFR Population [...] A DERECK, BMP, CBC, GFR, ADIFF #### [address] [address] GFR >60 Normal [facility] ([place] Comment on above: Result Comment: GFR Population [...] A DERECK, BMP, CBC, GFR, ADIFF #### [address] [address] .NEUABSon 05-13-2020 Neutrophils (Bld) [#/Vol] 5.40 10 3/mcL Normal 2.25-8.10 [facility] ([place] Comment on above: Performed By: #### A DERECK, BMP, CBC, GFR, ADIFF #### [address] [address] BMPon 05-13-2020 Calcium [Mass/Vol] 9.4 mg/dL Normal 8.7-10.4 [facility] ([place] Comment on above: Result Comment: No te - New Reference Range in effect 19 Performed By: #### A DERECK, BMP, CBC, GFR, ADIFF #### [address] [address] Chloride [Moles/Vol] 107 mmol/L Normal 98-110 [facility] ([place] Comment on above: Performed By: #### A DERECK, BMP, CBC, GFR, ADIFF #### [address] [address] CO2 [Moles/Vol] 29 mmol/L Normal 22-32 [facility] ([place] Comment on above: Performed By: #### A DERECK, BMP, CBC, GFR, ADIFF #### [address] [address] Creatinine [Mass/Vol] 0.65 mg/dL Normal 0.60-1.40 [facility] ([place] Comment on above: Performed By: #### A DERECK, BMP, CBC, GFR, ADIFF #### [address] [address] Electrolyte Balance 7.0 mEq/L Normal 4.0-15.0 [facility] ([place]) Comment on above: Performed By: #### A DERECK, BMP, CBC, GFR, ADIFF #### [address] [address] Glucose [Mass/Vol] 70 mg/dL Low 82-115 [facility] ([place] Comment on above: Performed By: #### A DERECK, BMP, CBC, GFR, ADIFF #### [address] [address] Potassium [Moles/Vol] 4.2 mmol/L Normal 3.5-5.0 [facility] ([place] Comment on above: Result Comment: Spec imen slightly hemolyzed. Performed By: #### A DERECK, BMP, CBC, GFR, ADIFF #### [place] [id number] Sodium [Moles/Vol] 143 mmol/L Normal 136-145 [facility] ([place] Comment on above: Performed By: #### A DERECK, BMP, CBC, GFR, ADIFF #### [place] [id number] Urea nitrogen [Mass/Vol] 16.0 mg/dL Normal 8.0-22.0 [facility] ([place] Comment on above: Performed By: #### A DERECK, BMP, CBC, GFR, ADIFF #### [place] [id number] Urea nitrogen/Creatinine [Mass ratio] 24.6 ratio High 10.0-22.0 [facility] ([place] Comment on above: Performed By: #### A DERECK, BMP, CBC, GFR, ADIFF #### [place] [id number] CBCon 05-13-2020 Erythrocyte distribution width (RBC) [Ratio] 13.3 % Normal 11.5-15.5 [facility] ([place] Comment on above: Performed By: #### A DERECK, BMP, CBC, GFR, ADIFF #### [place] [id number] Hematocrit (Bld) [Volume fraction] 44.6 % Normal 40.0-52.0 [facility] ([place] Comment on above: Performed By: #### A DERECK, BMP, CBC, GFR, ADIFF #### [place] [id number] Hemoglobin (Bld) [Mass/Vol] 15.0 G/dL Normal 13.0-17.5 [facility] ([place] Comment on above: Performed By: #### A DERECK, BMP, CBC, GFR, ADIFF #### [place] [id number] MCH (RBC) [Entitic mass] 30.4 pg Normal 27.0-33.0 [facility] ([place] Comment on above: Performed By: #### A DERECK, BMP, CBC, GFR, ADIFF #### [address] [address] MCHC (RBC) [Mass/Vol] 33.5 G/dL Normal 32.0-36.0 [facility] ([place] Comment on above: Performed By: #### A DERECK, BMP, CBC, GFR, ADIFF #### [place] [id number] MCV (RBC) [Entitic vol] 90.7 fL Normal 81.0-100.0 [facility] ([place] Comment on above: Performed By: #### A DERECK, BMP, CBC, GFR, ADIFF #### [place] [id number] Platelet mean volume (Bld) [Entitic vol] 11.0 fL High 6.4-10.5 [facility] ([place] Comment on above: Performed By: #### A DERECK, BMP, CBC, GFR, ADIFF #### [place] [id number] Platelets (Bld) [#/Vol] 167 10 3/mcL Normal 150-450 [facility] ([place] Comment on above: Performed By: #### A DERECK, BMP, CBC, GFR, ADIFF #### [address] [address] RBC (Bld) [#/Vol] 4.92 10 6/mcL Normal 4.50-6.00 [facility] ([place] Comment on above: Performed By: #### A DERECK, BMP, CBC, GFR, ADIFF #### [place] [id number] WBC (Bld) [#/Vol] 7.30 10 3/mcL Normal 4.50-10.80 [facility] ([place] Comment on above: Performed By: #### A DERECK, BMP, CBC, GFR, ADIFF #### [address] [address] .Auto Diffon 05-08-2020 Ammonia (P) [Mass/Vol] 0.70 10 3/mcL Normal 0.09-1.40 [facility] ([place] Comment on above: Performed By: #### A DERECK, GFR, CBC, BMP, ADIFF #### [address] [address] Basophils (Bld) [#/Vol] 0.00 10 3/mcL Normal 0.00-0.27 [facility] ([place] Comment on above: Performed By: #### A DERECK, GFR, CBC, BMP, ADIFF #### [address] [address] Basophils/100 WBC (Bld) 0.4 % Normal 0.0-2.5 A [facility] ([place] Comment on above: Performed By: #### A DERECK, GFR, CBC, BMP, ADIFF #### [address] [address] Eosinophils (Bld) [#/Vol] 0.20 10 3/mcL Normal 0.00-0.65 [facility] ([place] Comment on above: Performed By: #### A DERECK, GFR, CBC, BMP, ADIFF #### [address] [address] Eosinophils/100 WBC (Bld) 1.9 % Normal 0.0-6.0 [facility] ([place] Comment on above: Performed By: #### A DERECK, GFR, CBC, BMP, ADIFF #### [address] [address] Lymphocytes (Bld) [#/Vol] 1.60 10 3/mcL Normal 0.90-4.32 [facility] ([place]) Comment on above: Performed By: #### A DERECK, GFR, CBC, BMP, ADIFF #### [address] [address] Lymphocytes/100 WBC (Bld) 14.0 % Low 20.0-40.0 [facility] ([place] Comment on above: Performed By: #### A DERECK, GFR, CBC, BMP, ADIFF #### [address] [address] Monocytes/100 WBC (Bld) 6.0 % Normal 2.0-13.0 A [facility] ([place] Comment on above: Performed By: #### A DERECK, GFR, CBC, BMP, ADIFF #### [address] [address] Neutrophils/100 WBC (Bld) 77.7 % High 50.0-75.0 [facility] ([place] Comment on above: Performed By: #### A DERECK, GFR, CBC, BMP, ADIFF #### [address] [address] .GFRon 05-08-2020 GFR Non- >60 Normal [facility] ([place] Comment on above: Result Comment: GFR Population [...] A DERECK, GFR, CBC, BMP, ADIFF #### [address] [address] GFR >60 Normal [facility] ([place] Comment on above: Result Comment: GFR Population [...] A DERECK, GFR, CBC, BMP, ADIFF #### [address] [address] .NEUABSon 05-08-2020 Neutrophils (Bld) [#/Vol] 8.60 10 3/mcL High 2.25-8.10 [facility] ([place] Comment on above: Performed By: #### A DERECK, GFR, CBC, BMP, ADIFF #### [address] [address] BMPon 05-08-2020 Calcium [Mass/Vol] 9.3 mg/dL Normal 8.7-10.4 [facility] ([place] Comment on above: Result Comment: No te - New Reference Range in effect 19 Performed By: #### A DERECK, GFR, CBC, BMP, ADIFF #### [place] [id number] Chloride [Moles/Vol] 104 mmol/L Normal 98-110 [facility] ([place] Comment on above: Performed By: #### A DERECK, GFR, CBC, BMP, ADIFF #### [address] [address] CO2 [Moles/Vol] 27 mmol/L Normal 22-32 [facility] ([place] Comment on above: Performed By: #### A DERECK, GFR, CBC, BMP, ADIFF #### [place] [address] Creatinine [Mass/Vol] 0.77 mg/dL Normal 0.60-1.40 [facility] ([place] Comment on above: Performed By: #### A DERECK, GFR, CBC, BMP, ADIFF #### [place] [id number] Electrolyte Balance 8.0 mEq/L Normal 4.0-15.0 [facility] ([place] Comment on above: Performed By: #### A DERECK, GFR, CBC, BMP, ADIFF #### [place] [id number] Glucose [Mass/Vol] 89 mg/dL Normal 82-115 [facility] ([place] Comment on above: Performed By: #### A DERECK, GFR, CBC, BMP, ADIFF #### [place] [id number] Potassium [Moles/Vol] 4.7 mmol/L Normal 3.5-5.0 [facility] ([place] Comment on above: Performed By: #### A DERECK, GFR, CBC, BMP, ADIFF #### [place] [phone] Sodium [Moles/Vol] 139 mmol/L Normal 136-145 [facility] ([place] Comment on above: Performed By: #### A DERECK, GFR, CBC, BMP, ADIFF #### [place] [id number] Urea nitrogen [Mass/Vol] 13.0 mg/dL Normal 8.0-22.0 [facility] ([place] Comment on above: Performed By: #### A DERECK, GFR, CBC, BMP, ADIFF #### [place] [id number] Urea nitrogen/Creatinine [Mass ratio] 16.9 ratio Normal 10.0-22.0 [facility] ([place] Comment on above: Performed By: #### A DERECK, GFR, CBC, BMP, ADIFF #### [address] [address] CBCon 05-08-2020 Erythrocyte distribution width (RBC) [Ratio] 13.1 % Normal 11.5-15.5 [facility] ([place] Comment on above: Performed By: #### A DERECK, GFR, CBC, BMP, ADIFF #### [place] [id number] Hematocrit (Bld) [Volume fraction] 43.0 % Normal 40.0-52.0 [facility] ([place] Comment on above: Performed By: #### A DERECK, GFR, CBC, BMP, ADIFF #### [place] [id number] Hemoglobin (Bld) [Mass/Vol] 14.2 G/dL Normal 13.0-17.5 [facility] ([place] Comment on above: Performed By: #### A DERECK, GFR, CBC, BMP, ADIFF #### [address] [address] MCH (RBC) [Entitic mass] 29.9 pg Normal 27.0-33.0 [facility] ([place] Comment on above: Performed By: #### A DERECK, GFR, CBC, BMP, ADIFF #### [address] [address] MCHC (RBC) [Mass/Vol] 33.2 G/dL Normal 32.0-36.0 [facility] ([place] Comment on above: Performed By: #### A DERECK, GFR, CBC, BMP, ADIFF #### [place] [id number] MCV (RBC) [Entitic vol] 90.1 fL Normal 81.0-100.0 [facility] ([place] Comment on above: Performed By: #### A DERECK, GFR, CBC, BMP, ADIFF #### [address] [address] Platelet mean volume (Bld) [Entitic vol] 11.4 fL High 6.4-10.5 [facility] ([place] Comment on above: Performed By: #### A DERECK, GFR, CBC, BMP, ADIFF #### [address] [address] Platelets (Bld) [#/Vol] 156 10 3/mcL Normal 150-450 [facility] ([place] Comment on above: Performed By: #### A DERECK, GFR, CBC, BMP, ADIFF #### [address] [address] RBC (Bld) [#/Vol] 4.77 10 6/mcL Normal 4.50-6.00 [facility] ([place] Comment on above: Performed By: #### A DERECK, GFR, CBC, BMP, ADIFF #### [place] [id number] WBC (Bld) [#/Vol] 11.10 10 3/mcL High 4.50-10.80 [facility] ([place] Comment on above: Performed By: #### A DERECK, GFR, CBC, BMP, ADIFF #### [address] [address] .Auto Diffon 05-04-2020 Ammonia (P) [Mass/Vol] 1.00 10 3/mcL Normal 0.09-1.40 [facility] ([place] Comment on above: Performed By: #### A DERECK, BMP, CBC, GFR, ADIFF #### [address] [address] Basophils (Bld) [#/Vol] 0.00 10 3/mcL Normal 0.00-0.27 [facility] ([place] Comment on above: Performed By: #### A DERECK, BMP, CBC, GFR, ADIFF #### [address] [address] Basophils/100 WBC (Bld) 0.3 % Normal 0.0-2.5 A [facility] ([place] Comment on above: Performed By: #### A DERECK, BMP, CBC, GFR, ADIFF #### [address] [address] Eosinophils (Bld) [#/Vol] 0.20 10 3/mcL Normal 0.00-0.65 [facility] ([place] Comment on above: Performed By: #### A DERECK, BMP, CBC, GFR, ADIFF #### [address] [address] Eosinophils/100 WBC (Bld) 1.5 % Normal 0.0-6.0 [facility] ([place] Comment on above: Performed By: #### A DERECK, BMP, CBC, GFR, ADIFF #### [address] [address] Lymphocytes (Bld) [#/Vol] 1.60 10 3/mcL Normal 0.90-4.32 [facility] ([place] Comment on above: Performed By: #### A DERECK, BMP, CBC, GFR, ADIFF #### [address] [address] Lymphocytes/100 WBC (Bld) 13.1 % Low 20.0-40.0 [facility] ([place] Comment on above: Performed By: #### A DERECK, BMP, CBC, GFR, ADIFF #### [address] [address] Monocytes/100 WBC (Bld) 8.4 % Normal 2.0-13.0 A [facility] ([place] Comment on above: Performed By: #### A DERECK, BMP, CBC, GFR, ADIFF #### [address] [address] Neutrophils/100 WBC (Bld) 76.7 % High 50.0-75.0 [facility] ([place] Comment on above: Performed By: #### A DERECK, BMP, CBC, GFR, ADIFF #### [address] [address] .GFRon 05-04-2020 GFR >60 Normal [facility] ([place] Comment on above: Result Comment: GFR Population [...] A DERECK, BMP, CBC, GFR, ADIFF #### [address] [address] GFR Non- >60 Normal [facility] ([place] Comment on above: Result Comment: GFR Population [...] A DERECK, BMP, CBC, GFR, ADIFF #### [place] [address] .NEUABSon 05-04-2020 Neutrophils (Bld) [#/Vol] 9.10 10 3/mcL High 2.25-8.10 [facility] ([place] Comment on above: Performed By: #### A DERECK, BMP, CBC, GFR, ADIFF #### [place] [address] CBCon 05-04-2020 Erythrocyte distribution width (RBC) [Ratio] 13.4 % Normal 11.5-15.5 [facility] ([place] Comment on above: Performed By: #### A DERECK, BMP, CBC, GFR, ADIFF #### [place] [address] Hematocrit (Bld) [Volume fraction] 47.0 % Normal 40.0-52.0 [facility] ([place] Comment on above: Performed By: #### A DERECK, BMP, CBC, GFR, ADIFF #### [place] [address] Hemoglobin (Bld) [Mass/Vol] 16.1 G/dL Normal 13.0-17.5 [facility] ([place] Comment on above: Performed By: #### A DERECK, BMP, CBC, GFR, ADIFF #### [place] [address] MCH (RBC) [Entitic mass] 30.6 pg Normal 27.0-33.0 [facility] ([place] Comment on above: Performed By: #### A DERECK, BMP, CBC, GFR, ADIFF #### [address] [address] MCHC (RBC) [Mass/Vol] 34.4 G/dL Normal 32.0-36.0 [facility] ([place] Comment on above: Performed By: #### A DERECK, BMP, CBC, GFR, ADIFF #### [address] [address] MCV (RBC) [Entitic vol] 88.8 fL Normal 81.0-100.0 [facility] ([place] Comment on above: Performed By: #### A DERECK, BMP, CBC, GFR, ADIFF #### [address] [address] Platelet mean volume (Bld) [Entitic vol] 11.6 fL High 6.4-10.5 [facility] ([place] Comment on above: Performed By: #### A DERECK, BMP, CBC, GFR, ADIFF #### [place] [id number] Platelets (Bld) [#/Vol] 147 10 3/mcL Low 150-450 [facility] ([place] Comment on above: Performed By: #### A DERECK, BMP, CBC, GFR, ADIFF #### [place] [id number] RBC (Bld) [#/Vol] 5.29 10 6/mcL Normal 4.50-6.00 [facility] ([place] Comment on above: Performed By: #### A DERECK, BMP, CBC, GFR, ADIFF #### [place] [id number] WBC (Bld) [#/Vol] 11.90 10 3/mcL High 4.50-10.80 [facility] ([place] Comment on above: Performed By: #### A DERECK, BMP, CBC, GFR, ADIFF #### [address] [address] CMPon 05-04-2020 Albumin [Mass/Vol] 3.2 G/dL Normal 3.2-4.8 [facility] ([place] Comment on above: Performed By: #### A DERECK, BMP, CBC, GFR, ADIFF #### [address] [address] Albumin/Globulin [Mass ratio] 1.0 {ratio} Normal 0.9-1.6 [facility] ([place] Comment on above: Performed By: #### A DERECK, BMP, CBC, GFR, ADIFF #### [address] [address] ALP [Catalytic activity/Vol] 126 U/L Normal 38-126 [facility] ([place] Comment on above: Performed By: #### A DERECK, BMP, CBC, GFR, ADIFF #### [place] [id number] ALT [Catalytic activity/Vol] 73 U/L High 12-55 [facility] ([place] Comment on above: Performed By: #### A DERECK, BMP, CBC, GFR, ADIFF #### [place] [id number] AST [Catalytic activity/Vol] 42 U/L High 8-34 [facility] ([place] Comment on above: Performed By: #### A DERECK, BMP, CBC, GFR, ADIFF #### [place] [id number] Bili Total 0.60 mg/dL Normal 0.20-1.20 [facility] ([place] Comment on above: Result Comment: Use of this assay is not recommended for patients undergoing treatment with eltrombopag due to the potential for falsely elevated results. Performed By: #### A DERECK, BMP, CBC, GFR, ADIFF #### [place] [id number] Calcium [Mass/Vol] 9.6 mg/dL Normal 8.7-10.4 [facility] ([place] Comment on above: Result Comment: No te - New Reference Range in effect 19 Performed By: #### A DERECK, BMP, CBC, GFR, ADIFF #### [place] [id number] Chloride [Moles/Vol] 107 mmol/L Normal 98-110 [facility] ([place] Comment on above: Performed By: #### A DERECK, BMP, CBC, GFR, ADIFF #### [address] [address] CO2 [Moles/Vol] 23 mmol/L Normal 22-32 [facility] ([place] Comment on above: Performed By: #### A DERECK, BMP, CBC, GFR, ADIFF #### [address] [address] Creatinine [Mass/Vol] 0.70 mg/dL Normal 0.60-1.40 [facility] ([place] Comment on above: Performed By: #### A DERECK, BMP, CBC, GFR, ADIFF #### [address] [address] Electrolyte Balance 8.0 mEq/L Normal 4.0-15.0 [facility] ([place] Comment on above: Performed By: #### A DERECK, BMP, CBC, GFR, ADIFF #### [place] [id number] Globulin (S) [Mass/Vol] 3.3 G/dL Normal 1.5-3.8 [facility] ([place] Comment on above: Performed By: #### A DERECK, BMP, CBC, GFR, ADIFF #### [address] [address] Glucose [Mass/Vol] 98 mg/dL Normal 82-115 [facility] ([place] Comment on above: Performed By: #### A DERECK, BMP, CBC, GFR, ADIFF #### [address] [address] Potassium [Moles/Vol] 4.2 mmol/L Normal 3.5-5.0 [facility] ([place] Comment on above: Performed By: #### A DERECK, BMP, CBC, GFR, ADIFF #### [address] [address] Protein [Mass/Vol] 6.5 G/dL Normal 5.7-8.2 [facility] ([place] Comment on above: Result Comment: No te - New Reference Range in effect 20 Performed By: #### A DERECK, BMP, CBC, GFR, ADIFF #### [facility] [address] [place] [address] Sodium [Moles/Vol] 138 mmol/L Normal 136-145 [facility] ([place] Comment on above: Performed By: #### A DERECK, BMP, CBC, GFR, ADIFF #### [address] [address] Urea nitrogen [Mass/Vol] 14.0 mg/dL Normal 8.0-22.0 [facility] ([place] Comment on above: Performed By: #### A DERECK, BMP, CBC, GFR, ADIFF #### [facility] [address] [place] [address] Urea nitrogen/Creatinine [Mass ratio] 20.0 ratio Normal 10.0-22.0 [facility] ([place] Comment on above: Performed By: #### A DERECK, BMP, CBC, GFR, ADIFF #### [address] [address] Encounters Encounter Date Encounter Type Care Provider Facility Start: 01-31-2025 ambulatory [facility] Facility: [facility] Start: 02-04-2024 End: 02-04-2024 [facility] Facility:[facility] Start: 01-28-2024 End: 01-28-2024 [facility] Facility:[facility] Start: 01-29-2023 End: 01-29-2023 ambulatory [facility] Work Phone: Start: 01-29-2023 End: 01-29-2023 Patient encounter procedure [facility] Work Phone: Start: 07-10-2022 End: 07-10-2022 ambulatory [facility] Work Phone: Start: 07-10-2022 End: 07-10-2022 [facility] Start: 12-02-2021 End: 12-02-2021 Patient encounter procedure [facility] Plan of Treatment Date Care Activity Detail Author Antibody to lupus La protein measurement [facility] Antibody to SS-A measurement [facility] Centromere protein B Ab [Units/volume] in Serum [facility] Chromatin Ab [Units/volume] in Serum or P lasma [facility] DNA double strand Ab [Units/volume] in Se rum [facility] Angela-1 extractable nuc lear Ab [Units/volume] in Serum [facility] SCL-70 extractable n uclear Ab [Units/volume] in Serum by Immunoassay [facility] [place] extractable nu clear Ab [Presence] in Serum [facility] Payers Date Payer Category Payer Self-pay [id number] 2023 Unknown [id number] Unknown [id number] Unknown UHC/[address]/[place] ÁNGEL [id number] Unknown AARP MCR ADV [id number] Unknown [id number] Unknown [id number] Social History Date Type Detail Facility Start: 01-20-2021 Tobacco smoking stat us [facility] Unknown if ever smoked [facility] Start: 1960 Sex Assigned At Male [facility] Evaluation note Note Date & Type Note Facility Evaluation note No assessment information availa ble [facility] Work Phone: Summary Purpose Family History No Family History Records Found Relationship Condition Age at Onset Recorded Date/T bakari sister Hypercholesterolemia Unknown father Cerebrovascular accident (CVA) Unknown Hypercholesterolemia Unknown Advance Directives No Advanced Directives Records Found Advance Directive Response Recorded Date/ Time Living Will No January 16, 2021 12:20pm Power of Director Of Community Education No December 12:20pm Additional Source Comments (unrecognized sect ion and content) No Status Records FoundNo Status Records Found INFORMATION SOURCE (unrecogn ized section and content) DATE CREATED AUTHOR 07/16/2020 [facility] ([place]) DATE CREATED AUTHOR AUTHOR'S ORGANIZ ATION 08/14/2024 [place] [facility] Goals (unrecognized section and content) Goals [...] BE BASED ON THE PRIMARY CLINICAL RECORDS. [employer]. provides no warranty or guarantee of the accuracy or completeness of information in this document.
[2025-02-02 10:15] LABS: Hematocrit 49.9 % (40-54); Hemoglobin 16.7 g/dL (13.0-16.5); Immature Granulocytes Count 0.020 X10^3/uL (0.0-0.0); Mean Corp Hgb Conc 33.5 g/dL (32-36); Mean Corpuscular Volume 92.4 fL (80-94); Mean Platelet Vol. 13.0 fl (6.2-12.0); NRBC Flagged by Analyzer 0 % (0-5); Platelet Count 216 K/mm3 (150-450); RBC Distribution Width CV 13.5 % (11.6-14.6); RBC Distribution Width SD 46.2 fl (35.1-43.9); Red Blood Count 5.40 M/mm3 (4.6-6.2); White Blood Count 7.9 K/mm3 (4.4-11.0)
[2025-02-02 10:50] LABS: AST(SGOT) 19 U/L (<=37); Alanine Aminotransfer ALT/SGPT 22 U/L (<=46); Albumin, Serum 4.6 g/dL (3.4-4.8); Alkaline Phosphatase 68 U/L (40-129); Anion Gap 10 (5-15); BUN 16 mg/dL (4-19); BUN/Creat Ratio 18.8 RATIO (10-20); Calcium,Total 9.5 mg/dL (7.6-11.0); Carbon Dioxide 27.3 mmol/L (21.0-32.0); Chloride 104 mmol/L (98-108); Cholesterol 139 mg/dL (<=200); Globulin 2.3 g/dL (2.2-4.2); Glucose 90 mg/dL (70-99); Low Density Lipoprotein Calc. 45 mg/dL; PSA,Total - Annual Screen 0.46 ng/mL (0.02-4.00); Potassium 4.3 mmol/L (3.3-5.1); Triglycerides 72 mg/dL; Very Low Density Lipoprotein 14 mg/dL (5-40); cholesterol:hdl ratio screen 1.74
== END | disposition home or self-care (01) ==
LOC: MTLAB 07:15
PROVIDERS: PCP Family Medicine; Referring Provider Family Medicine; Visit Provider Family Medicine
DX: Z00.01 Encounter for general adult medical examination with abnormal findings (principal); Z12.5 Encounter for screening for malignant neoplasm of prostate; E78.5 Hyperlipidemia, unspecified; I10 Essential (primary) hypertension; I67.9 Cerebrovascular disease, unspecified
CPT/HCPCS: 36415; 80053; 80061; 84153; 85025; G0103